=== PATIENT | female | born 1975 | race American Indian/Alaskan Native ===

== ENCOUNTER 2017-09-07 14:48 | Emergency (ER) | payer MEDICAID ==
--- NOTE | 2017-09-07 18:44 | Emergency Department Report ---
ED Allergic Reaction HPI - General Chief complaint: Allergic Reaction Stated complaint: RASH TO HEAD Time Seen by Provider: 09/07/17 16:54 Source: patient Mode of arrival: Ambulatory Limitations: No Limitations - History of Present Illness Initial Comments: States that she used a new gel on her hair, and began to notice the next day that she had drainage, itching, burning sensation to the scalp and her hands. Eyes are red itchy, right side of her face has a rash now. She then fell down a flight of 4 steps, stating she couldn't see well because her eyelids were swollen. Says her right elbow hurts from the fall, and cannot fully extend it. No prior history. She denies allergies. She tried OTC benadryl, and mild soap. Denies other symptoms, no LOC. MD Complaint: allergic reaction -: Sudden, days(s) (1) Exposure: other (hair chemical) Symptoms: rash Severity: moderate Treatment Prior to Arrival: benadryl Previous Allergy History: none - Related Data Home Medications Medication Instructions Recorded Confirmed Last Taken Losartan/Hydrochlorothiazide 1 each PO DAILY 09/07/17 09/07/17 Unknown [Hyzaar 100-12.5 Tablet] Previous Rx's Medication Instructions Recorded Last Taken Type Cephalexin [Keflex] 500 mg PO Q6HR #40 cap 09/07/17 Unknown Rx Hydroxyzine HCl [hydrOXYzine] 50 mg PO TID PRN #30 tablet 09/07/17 Unknown Rx Ibuprofen 600 mg PO TID PRN #30 tablet 09/07/17 Unknown Rx methylPREDNISolone [Medrol Dose 4 mg PO DAILY #1 pack 09/07/17 Unknown Rx Richardson] Allergies Allergy/AdvReac Type Severity Reaction Status Date / Time No Known Allergies Allergy Unverified 09/07/17 15:11 ED Review of Systems ROS: Stated complaint: RASH TO HEAD Other details as noted in HPI Comment: All other systems reviewed and negative Constitutional: see HPI Eyes: other (eyelid swelling) ENT: as per HPI Respiratory: see HPI Cardiovascular: as per HPI Endocrine: see HPI Gastrointestinal: as per HPI Genitourinary: as per HPI Musculoskeletal: as per HPI Skin: as per HPI Neurological: as per HPI Psychiatric: as per HPI Hematological/Lymphatic: as per HPI ED Past Medical Hx - Past Medical History Previous Medical History?: Yes Hx Hypertension: Yes Additional medical history: glaucoma - Surgical History Past Surgical History?: No - Social History Smoking Status: Never Smoker Substance Use Type: None - Medications Home Medications: Home Medications Medication Instructions Recorded Confirmed Last Taken Type Cephalexin [Keflex] 500 mg PO Q6HR #40 cap 09/07/17 Unknown Rx Hydroxyzine HCl [hydrOXYzine] 50 mg PO TID PRN #30 tablet 09/07/17 Unknown Rx Ibuprofen 600 mg PO TID PRN #30 tablet 09/07/17 Unknown Rx Losartan/Hydrochlorothiazide 1 each PO DAILY 09/07/17 09/07/17 Unknown History [Hyzaar 100-12.5 Tablet] methylPREDNISolone [Medrol Dose 4 mg PO DAILY #1 pack 09/07/17 Unknown Rx Richardson] ED Physical Exam - General Limitations: No Limitations General appearance: alert, in no apparent distress - Head Head exam: Present: other (erythema on the right religion region with excoriations and drainage from numerous skin lesions, appears to have purulent drainage in the posterior auricular area ) - Eye Eye exam: Present: other (erythema and swelling of both upper and lower eyelids) - ENT ENT exam: Present: normal exam, normal orophraynx - Neck Neck exam: Present: normal inspection - Respiratory Respiratory exam: Present: normal lung sounds bilaterally. Absent: respiratory distress, wheezes, rales, rhonchi - Cardiovascular Cardiovascular Exam: Present: regular rate, normal rhythm, normal heart sounds - GI/Abdominal GI/Abdominal exam: Present: soft, normal bowel sounds. Absent: distended, tenderness, guarding, rebound, rigid - Rectal Rectal exam: Present: deferred - Extremities Exam Extremities exam: Present: tenderness (right elbow, no abrasion ) - Back Exam Back exam: Present: normal inspection, full ROM - Neurological Exam Neurological exam: Present: alert, oriented X3, CN II-XII intact - Psychiatric Psychiatric exam: Present: normal affect, normal mood - Skin Skin exam: Present: other (as described previously) ED Course Vital Signs 09/07/17 09/07/17 09/07/17 15:11 17:28 17:35 Temperature 99.1 F 98.7 F Pulse Rate 99 H 81 Respiratory 18 16 16 Rate Blood Pressure 223/116 Blood Pressure 172/96 [Left] O2 Sat by Pulse 96 97 Oximetry - Reevaluation(s) Reevaluation #1: 09/07/17 18:50 appears to have had an acute contact dermatitis to the hair chemical, will Rx for steroids, analgesics, atarax, and antibiotics for suspectd secondary infection, and will get xray of the right elbow. 09/07/17 20:58 I don't appreciate any obvious Fx to the elbow. Advised that the official report will come in a day or so. She will need a steroid taper and antibiotics. I'll rx for a medrol dose richardson and keflex. She is to follow up with her PMD. And avoid using any kind of shampoos or detergents other than baby shampoo. She expresses understanding. Motrin or tylenol for her elbow pain. Critical care attestation.: If time is entered above; I have spent that time in minutes in the direct care of this critically ill patient, excluding procedure time. ED Disposition Clinical Impression: Staph aureus infection Contact dermatitis Qualifiers: Contact dermatitis type: allergic Contact dermatitis trigger: cosmetics Qualified Code(s): L23.2 - Allergic contact dermatitis due to cosmetics Disposition: DC- TO HOME OR SELFCARE Is pt being admited?: No Does the pt Need Aspirin: No Condition: Stable Instructions: Contact Dermatitis (ED), Impetigo (ED) Additional Instructions: Rest, fluids, follow up with your doctor, watch for worsening, new symptoms, take medications as prescribed, return as needed. Prescriptions: Cephalexin [Keflex] 500 mg PO Q6HR #40 cap Hydroxyzine HCl [hydrOXYzine] 50 mg PO TID PRN #30 tablet PRN Reason: Itching Ibuprofen 600 mg PO TID PRN #30 tablet PRN Reason: Pain methylPREDNISolone [Medrol Dose Richardson] 4 mg PO DAILY #1 pack Referrals: PRIMARY CARE, [Primary Care Provider] - 3-5 Days
[2017-09-07 21:54] VITALS: BP 172/94
--- NOTE | 2017-09-09 07:46 | XRay Report ---
FINAL REPORT PROCEDURE: XR ELBOW 3+V RT TECHNIQUE: RIGHT elbow radiographs, including AP, lateral, and oblique views. CPT 04984 HISTORY: fall, hit elbow COMPARISON: No prior studies are available for comparison. FINDINGS: Fracture (s) and/or Dislocation(s): None . Alignment: Normal . Joint space(s): Normal . Soft tissues: Normal . Bone mineralization: Normal . Foreign bodies: None . IMPRESSION: Normal Examination
== END 2017-09-07 21:51 | disposition home or self-care (01) ==
LOC: ED 14:48
DX: B95.7 Other staphylococcus as the cause of diseases classified elsewhere (principal); L23.2 Allergic contact dermatitis due to cosmetics; I10 Essential (primary) hypertension
CPT/HCPCS: 73080; 96372; 99283; J2930

== ENCOUNTER 2017-12-06 00:57 | Emergency (ER) | payer MEDICAID ==
[2017-12-06 03:03] LABS: HCG Qualitative,Urine Negative (Negative)
--- NOTE | 2017-12-06 09:24 | Emergency Department Report ---
ED Headache HPI - General Chief Complaint: Headache Stated Complaint: H/A; BLURRED VISION Time Seen by Provider: 12/06/17 09:10 Source: patient, family - History of Present Illness Initial Comments: This is a 42-year-old female patient here with headache 2 weeks. She complained of blurred vision. She reports chest tightness in triage area but denies any chest pain or tightness at present. Denies any pain with inspiration. Denies any history of chest pain. She reports nasal congestion runny nose and postnasal drip. Pain to head 7-10 and aching. It is located frontally. She has is that she did go home. This is positive she is on losartan HCTZ which she has not taken today her blood pressure is 188/83 patient also has a history of overactive thyroid, glaucoma. Denies any nausea or vomiting. She reports occasional coughing. No medication taken for pain. Pain is intermittent. Denies any trauma. Denies that she just moved to [place] from [place] and she is given adjusted to the weather. She has been here and 09/07/2017 and was diagnosed with allergic reaction. Timing/Duration: episodic, waxing and waning, other (2 weeks) Quality: severe (7/10), achy, pressure Head Injury Location: frontal Recent Head Trauma: occasional headaches Modifying Factors: improves with: rest Associated Symptoms: nasal congestion, nasal drainage, vision changes ( blurred vision on and off). denies: confusion, fatigue, facial pain, fever/chills, flushing, loss of consciousness, nausea/vomiting, numbness in legs/feet, rash, seizures, sinus infection, stiff neck, weakness Allergies/Adverse Reactions: Allergies No Known Allergies Allergy (Verified 12/06/17 02:18) Home Medications: Ambulatory Orders Cephalexin [Keflex] 500 mg PO Q6HR #40 cap 09/07/17 Hydroxyzine HCl [hydrOXYzine] 50 mg PO TID PRN #30 tablet 09/07/17 Losartan/Hydrochlorothiazide [Hyzaar 100-12.5 Tablet] 1 each PO DAILY 09/07/17 methylPREDNISolone [Medrol Dose Richardson] 4 mg PO DAILY #1 pack 09/07/17 Azithromycin [Zithromax Z-RICHARDSON] 250 mg PO DAILY 6 Days #1 pack 12/06/17 Cetirizine HCl [ZyrTEC] 10 mg PO QAM 14 Days #14 capsule 12/06/17 Fluticasone [Flonase] 1 spray NS QDAY 14 Days #1 bottle 12/06/17 Ibuprofen 600 mg PO TID PRN #12 tablet 12/06/17 predniSONE [Deltasone] 50 mg PO QDAY 3 Days #3 tab 12/06/17 ED Review of Systems ROS: Stated complaint: H/A; BLURRED VISION Other details as noted in HPI Comment: All other systems reviewed and negative Constitutional: denies: chills, fever Eyes: vision change (blurred vision on and off). denies: eye pain, eye discharge ENT: congestion. denies: ear pain, throat pain, dental pain, hearing loss Respiratory: denies: cough, shortness of breath, wheezing Cardiovascular: denies: chest pain, palpitations, dyspnea on exertion, edema, syncope, paroxysmal nocturnal dyspnea Gastrointestinal: denies: abdominal pain, nausea, vomiting, diarrhea Genitourinary: abnormal menses. denies: urgency, dysuria, frequency, hematuria , discharge Musculoskeletal: denies: back pain, joint swelling, arthralgia Skin: denies: rash, lesions Neurological: headache, other (dizziness). denies: weakness, numbness, paresthesias, confusion, abnormal gait ED Past Medical Hx - Past Medical History Previous Medical History?: Yes Hx Hypertension: Yes (on medication) Additional medical history: glaucoma , over active Thyroid whe - Surgical History Past Surgical History?: Yes Additional Surgical History: csection - Family History Family history: hypertension - Social History Smoking Status: Never Smoker Substance Use Type: None Other Social History: Resident to [place] and lives with family - Medications Home Medications: Home Medications Medication Instructions Recorded Confirmed Last Taken Type Cephalexin [Keflex] 500 mg PO Q6HR #40 cap 09/07/17 Unknown Rx Hydroxyzine HCl [hydrOXYzine] 50 mg PO TID PRN #30 tablet 09/07/17 Unknown Rx Losartan/Hydrochlorothiazide 1 each PO DAILY 09/07/17 09/07/17 Unknown History [Hyzaar 100-12.5 Tablet] methylPREDNISolone [Medrol Dose 4 mg PO DAILY #1 pack 09/07/17 Unknown Rx Richardson] Azithromycin [Zithromax Z-RICHARDSON] 250 mg PO DAILY 6 Days #1 pack 12/06/17 Unknown Rx Cetirizine HCl [ZyrTEC] 10 mg PO QAM 14 Days #14 capsule 12/06/17 Unknown Rx Fluticasone [Flonase] 1 spray NS QDAY 14 Days #1 bottle 12/06/17 Unknown Rx Ibuprofen 600 mg PO TID PRN #12 tablet 12/06/17 Unknown Rx predniSONE [Deltasone] 50 mg PO QDAY 3 Days #3 tab 12/06/17 Unknown Rx ED Physical Exam - General Limitations: No Limitations General appearance: alert, in no apparent distress - Head Head exam: Present: atraumatic, normocephalic, normal inspection, other (normal exam) - Eye Eye exam: Present: normal appearance, PERRL, EOMI. Absent: scleral icterus, conjunctival injection, nystagmus, periorbital swelling, periorbital tenderness Pupils: Present: normal accommodation - ENT ENT exam: Present: normal exam, normal orophraynx, mucous membranes moist, normal external ear exam, other (nasal mucosa congested and erythema with clear drainage.). Absent: TM's normal bilaterally - Neck Neck exam: Present: normal inspection, full ROM, other (no C-spine tenderness). Absent: tenderness, meningismus, lymphadenopathy - Respiratory Respiratory exam: Present: normal lung sounds bilaterally. Absent: respiratory distress, wheezes, rales, rhonchi, stridor, chest wall tenderness, accessory muscle use, decreased breath sounds, prolonged expiratory - Cardiovascular Cardiovascular Exam: Present: regular rate, normal rhythm, normal heart sounds. Absent: systolic murmur, diastolic murmur - GI/Abdominal GI/Abdominal exam: Present: soft, normal bowel sounds. Absent: distended, tenderness, guarding, rebound, rigid - Extremities Exam Extremities exam: Present: normal inspection, full ROM, normal capillary refill , other (no no clubbing, cyanosis or edema. +2 pulses all extremities and no neurovascular compromise). Absent: tenderness, pedal edema, joint swelling, calf tenderness - Back Exam Back exam: Present: normal inspection, full ROM, other (ambulates without any difficulties). Absent: tenderness, CVA tenderness (R), CVA tenderness (L), muscle spasm, paraspinal tenderness, vertebral tenderness, rash noted - Neurological Exam Neurological exam: Present: alert, oriented X3, normal gait, reflexes normal. Absent: motor sensory deficit - Expanded Neurological Exam Expanded Neurological exam: Absent: innattentive, memory loss-remote event, memory loss- recent event, ataxia, receptive aphasia, expressive aphasia, total aphasia, tremor, protecting the airway Patient oriented to: Present: person, place, time Cranial nerves: EOM's Intact: Normal, Gag Reflex: Normal, Tongue Deviation: Normal, Nystagmus: Normal, Facial Sensation: Normal Cerebellar function: Romberg: Normal Upper motor neuron: Sensory Extinction: Normal Sensory exam: Upper Extremity Light Touch: Normal, Upper Extremity Temperature: Normal, UE 2 Point Discrimination: Normal, Lower Extremity Light Touch: Normal, Lower Extremity Temperature: Normal, LE 2 Point Discrimination: Normal Motor strength exam: RUE: 5, LUE: 5, RLE: 5, LLE: 5 Best Eye Response (Jason): (4) open spontaneously Best Motor Response ([place]): (6) obeys commands Best Verbal Response ([place]): (5) oriented [place] Total: 15 - Psychiatric Psychiatric exam: Present: normal affect, normal mood - Skin Skin exam: Present: warm, dry, intact, normal color. Absent: rash ED Course Vital Signs 12/06/17 12/06/17 02:13 10:48 Temperature 98.8 F 98.4 F Pulse Rate 77 80 Respiratory 15 Rate Blood Pressure 188/83 Blood Pressure 183/108 [Left] O2 Sat by Pulse 98 96 Oximetry - Reevaluation(s) Reevaluation #1: 12/06/17 10:42 She given Tylenol 975 mg by mouth for headache and she was relief of her headache. CT scan revealed no intracranial abnormalities but patient with probably sphenoid sinusitis and patient with positive nasal congestion, erythematous nasal mucosa and drainage and postnasal drainage. No change in neurological status from baseline ED Medical Decision Making - Lab Data Lab Results 12/06/17 Range/Units Unknown Urine HCG, Qual Negative (Negative) - Radiology Data Radiology results: report reviewed Findings [facility] [address] [place] [address] Cat Scan Report Signed Patient: BRIAN KIMBALL MR#: [id number] : 1975 Acct:[id number] Age/Sex: 42 / F ADM Date: 12/06/17 Loc: ED Attending Dr: Ordering Physician: KEITH IBRAHIM Date of Service: 12/06/17 Procedure(s): CT head/brain wo con Accession Number(s): [id number] cc: KEITH IBRAHIM FINAL REPORT EXAM: CT HEAD/BRAIN WO CON HISTORY: headache, dizziness, blurred vision TECHNIQUE: CT of the head was performed. No intravenous contrast was administered. PRIORS: None. FINDINGS: There is no evidence of intracranial hemorrhage. There is no edema, mass effect or midline shift. There are no abnormal extra-axial fluid collections. The ventricles are appropriate for brain volume. There is no skull fracture seen. There are some dependent secretions and mucosal thickening involving the sphenoid sinus. IMPRESSION: Mucosal thickening and dependent secretions in sphenoid sinus which could represent sinusitis. Otherwise no acute intracranial abnormality seen. Transcribed By: LAZARA Dictated By: MUSA SHANKAR MD Electronically Authenticated By: MUSA SHANKAR MD Signed Date/Time: 12/06/17 0952 - Medical Decision Making ED course: A seen here with frontal headache this we will send and wane in over the last 2 weeks. She has a history of high blood pressure and she is on losartan/HCTZ but she brought to the hospital with her but did not take this morning. Patient took her losartan pressure was 188/[address] scan of the brain without contrast reveals no acute intracranial findings but patient with mucosal thickening with sphenoid sinusitis. Physical findings: Nasal congestion, runny nose erythema. I suspect the patient her CT scan results and also urinalysis with negative . I discussed the diagnosis of sinusitis and sinus headache. I also discussed with her that she needs to follow-up with [facility] as she is a new resident to [place] and does not have a primary care physician. Patient given information in [facility] and I told her to call today to schedule an appointment and to take her blood pressure and keep him up and take to her primary care visit with her. Patient given Tylenol 975 mg for headache which relieved her headache. She is neurologically intact. Discharged home in stable condition with prescription for prednisone, Z-Richardson, motrin ,Flonase and Zyrtec FINAL REPORT EXAM: CT HEAD/BRAIN WO CON HISTORY: headache, dizziness, blurred vision TECHNIQUE: CT of the head was performed. No intravenous contrast was administered. PRIORS: None. FINDINGS: There is no evidence of intracranial hemorrhage. There is no edema, mass effect or midline shift. There are no abnormal extra-axial fluid collections. The ventricles are appropriate for brain volume. There is no skull fracture seen. There are some dependent secretions and mucosal thickening involving the sphenoid sinus. IMPRESSION: Mucosal thickening and dependent secretions in sphenoid sinus which could represent sinusitis. Otherwise no acute intracranial abnormality seen. Transcribed By: LAZARA Dictated By: MUSA SHANKAR MD Electronically Authenticated By: MUSA SHANKAR MD Signed Date/Time: 12/06/17 0952 - Differential Diagnosis CVA, generalized headache, sinus headache, sinusitis, allerg rhininitis Critical care attestation.: If time is entered above; I have spent that time in minutes in the direct care of this critically ill patient, excluding procedure time. ED Disposition Clinical Impression: Elevated blood pressure reading with diagnosis of hypertension, Abnormal bleeding in menstrual cycle Sinusitis, acute Qualifiers: Sinusitis location: unspecified location Recurrence: not specified as recurrent Qualified Code(s): J01.90 - Acute sinusitis, unspecified Headache Qualifiers: Headache type: unspecified Headache chronicity pattern: acute headache Intractability: not intractable Qualified Code(s): R51 - Headache Disposition: DC-01 TO HOME OR SELFCARE Is pt being admited?: No Does the pt Need Aspirin: No Condition: Stable Instructions: Sinusitis (ED), Heart Healthy Diet (ED), Acute Headache (ED), Low Sodium Diet (ED), Hypertension (ED) Additional Instructions: Please follow up at [facility] for primary care visit an RANGE MANAGER visit. RANGE MANAGER will have to re-evaluate you for abnormal menstrual cycle. Primary care will manage her chronic blood pressure medical problems Take all medication as prescribed Prescriptions: Azithromycin [Zithromax Z-RICHARDSON] 250 mg PO DAILY 6 Days #1 pack Cetirizine HCl [ZyrTEC] 10 mg PO QAM 14 Days #14 capsule Fluticasone [Flonase] 1 spray NS QDAY 14 Days #1 bottle Ibuprofen 600 mg PO TID PRN #12 tablet PRN Reason: Pain predniSONE [Deltasone] 50 mg PO QDAY 3 Days #3 tab Referrals: TARYN RICO MD [Staff Physician] - 12/09/17 [facility] [Outside] - 12/09/17 (RANGE MANAGER and primary care physician ) Forms: Work/School Release Form(ED)
[2017-12-06] MEDS ORDERED: TYLENOL PO ONE (09:26)
--- NOTE | 2017-12-06 09:58 | Cat Scan Report ---
FINAL REPORT EXAM: CT HEAD/BRAIN WO CON HISTORY: headache, dizziness, blurred vision TECHNIQUE: CT of the head was performed. No intravenous contrast was administered. PRIORS: None. FINDINGS: There is no evidence of intracranial hemorrhage. There is no edema, mass effect or midline shift. There are no abnormal extra-axial fluid collections. The ventricles are appropriate for brain volume. There is no skull fracture seen. There are some dependent secretions and mucosal thickening involving the sphenoid sinus. IMPRESSION: Mucosal thickening and dependent secretions in sphenoid sinus which could represent sinusitis. Otherwise no acute intracranial abnormality seen.
[2017-12-06 11:08] VITALS: BP 160/92
== END 2017-12-06 11:14 | disposition home or self-care (01) ==
LOC: ED 00:57
DX: J01.90 Acute sinusitis, unspecified (principal); R51 Headache; I10 Essential (primary) hypertension; N91.5 Oligomenorrhea, unspecified
CPT/HCPCS: 70450; 81025

== ENCOUNTER 2018-11-02 23:21 | Inpatient (IN) | payer MEDICAID ==
[2018-11-03] MEDS ORDERED: CATAPRES PO ONE (00:05)
[2018-11-03 00:31] LABS: Basophils # (Auto) 0.1 K/mm3 (0.0-0.1); Basophils % (Auto) 1.4 % (0.0-1.8); Eosinophils # (Auto) 0.2 K/mm3 (0.0-0.4); Eosinophils % (Auto) 2.8 % (0.0-4.3); Hematocrit 40.2 % (30.3-42.9); Lymphocytes # (Auto) 2.8 K/mm3 (1.2-5.4); Lymphocytes % (Auto) 40.9 % (13.4-35.0); Mean Corpuscular HGB Conc 33 % (30-34); Mean Corpuscular Volume 86 fl (79-97); Monocytes # (Auto) 0.5 K/mm3 (0.0-0.8); Monocytes % (Auto) 7.1 % (0.0-7.3); Platelet Count 202 K/mm3 (140-440); Red Blood Count 4.69 M/mm3 (3.65-5.03); Red Cell Distribution Width 15.4 % (13.2-15.2)
[2018-11-03 00:43] LABS: INR 0.94 (0.87-1.13)
[2018-11-03 00:44] LABS: Partial Thromboplastin Time 32.1 Sec. (24.2-36.6)
--- NOTE | 2018-11-03 00:53 | Cat Scan Report ---
PROCEDURE: CT HEAD/BRAIN WO CON TECHNIQUE: Computerized tomography of the head was performed without contrast material. HISTORY: neuro deficits <6hrs or sx present upon awakening COMPARISONS: 12/06/17. FINDINGS: Skull and scalp: Normal . Paranasal sinuses: Normal . Ventricles and subarachnoid spaces: Normal . Cerebrum: No evidence of hemorrhage, acute infarction or mass . Cerebellum and brainstem: No evidence of hemorrhage, acute infarction or mass . Vasculature: Normal . Other: None . IMPRESSION: No evidence of hemorrhage, acute infarction or mass . This document is electronically signed by Vivian Cooper MD., November 03 2018 12:51:12 AM ET
[2018-11-03 00:58] LABS: BUN/Creatinine Ratio 15; Blood Urea Nitrogen 16 mg/dL (7-17); Calcium 9.5 mg/dL (8.4-10.2); Hemolysis Index 25
--- NOTE | 2018-11-03 03:08 | XRay Report ---
PROCEDURE: XR CHEST ROUTINE 2V TECHNIQUE: PA and lateral chest HISTORY: CP COMPARISONS: No priors FINDINGS: Cardiac silhouette mildly enlarged. There is no evidence of airspace consolidation or pleural effusions. The pulmonary vasculature is within normal limits. IMPRESSION: Cardiomegaly with no evidence of failure or acute infiltrates.. This document is electronically signed by Donovan Daigle MD., November 03 2018 03:06:14 AM ET
[2018-11-03] MEDS ORDERED: NITROSTAT SL PRN (04:19)
[2018-11-03] MEDS ORDERED: ASPIRIN PO ONE (04:20)
--- NOTE | 2018-11-03 04:36 | Emergency Department Report ---
ED Chest Pain HPI - General Chief Complaint: Chest Pain Stated Complaint: CHEST PAIN,LEFT SIDE FACE/ARM PAIN Time Seen by Provider: 11/03/18 03:07 Source: patient Mode of arrival: Ambulatory Limitations: No Limitations - History of Present Illness Initial Comments: Patient is a 43-year-old black female who is presenting with some chest pain. Patient states that yesterday she has chest discomfort lasted approximately 30 minutes to an hour and subsided. He returned earlier today tonight. Patient states just a pressure sensation in his she does have some radiation of this to her left side of her face on the left shoulder. Patient states the pain is persistent. Patient states that his shortness of breath associated with the chest discomfort. Over the last week patient has some shortness of breath with exertion with no pain. Patient denies any nausea vomiting diaphoresis fevers or chills. Patient states she has history of high blood pressure diabetes and has been compliant with her medications. Severity scale (0 -10): 7 - Related Data Home Medications Medication Instructions Recorded Confirmed Last Taken Losartan/Hydrochlorothiazide 50 mg PO DAILY 09/07/17 11/03/18 11/03/18 [Hyzaar 100-12.5 Tablet] Meloxicam 15 mg PO DAILY 11/03/18 11/03/18 11/03/18 metFORMIN [Glucophage] 500 mg PO BID 11/03/18 11/03/18 11/03/18 Allergies Allergy/AdvReac Type Severity Reaction Status Date / Time No Known Allergies Allergy Verified 12/06/17 02:18 Heart Score - HEART Score History: Highly suspicious EKG: Normal Age: < 45 Risk factors: > 3 risk factors or hx of atherosclerotic disease Troponin: < normal limit HEART Score: 4 ED Review of Systems ROS: Stated complaint: CHEST PAIN,LEFT SIDE FACE/ARM PAIN Other details as noted in HPI Comment: All other systems reviewed and negative ED Past Medical Hx - Past Medical History Previous Medical History?: Yes Hx Hypertension: Yes (on medication) Additional medical history: glaucoma , over active Thyroid whe - Surgical History Past Surgical History?: Yes Additional Surgical History: csection - Social History Smoking Status: Never Smoker Substance Use Type: None - Medications Home Medications: Home Medications Medication Instructions Recorded Confirmed Last Taken Type Losartan/Hydrochlorothiazide 50 mg PO DAILY 09/07/17 11/03/18 11/03/18 History [Hyzaar 100-12.5 Tablet] Meloxicam 15 mg PO DAILY 11/03/18 11/03/18 11/03/18 History metFORMIN [Glucophage] 500 mg PO BID 11/03/18 11/03/18 11/03/18 History ED Physical Exam - General Limitations: No Limitations General appearance: alert, in no apparent distress - Head Head exam: Present: atraumatic, normocephalic - Eye Eye exam: Present: normal appearance - ENT ENT exam: Present: mucous membranes moist - Neck Neck exam: Present: normal inspection - Respiratory Respiratory exam: Present: normal lung sounds bilaterally. Absent: respiratory distress, wheezes, rales, rhonchi - Cardiovascular Cardiovascular Exam: Present: regular rate, normal rhythm. Absent: systolic murmur, diastolic murmur, rubs, gallop - GI/Abdominal GI/Abdominal exam: Present: soft, normal bowel sounds. Absent: distended, tenderness, guarding, rebound, rigid - Extremities Exam Extremities exam: Present: normal inspection - Back Exam Back exam: Present: normal inspection - Neurological Exam Neurological exam: Present: alert, oriented X3 - Psychiatric Psychiatric exam: Present: normal affect, normal mood - Skin Skin exam: Present: warm, dry, intact, normal color. Absent: rash ED Course Vital Signs 11/02/18 11/03/18 11/03/18 23:59 00:10 01:27 Temperature 98.4 F 98.4 F Pulse Rate 73 73 76 Respiratory 20 20 Rate Blood Pressure 225/96 225/96 227/98 Blood Pressure [Left] O2 Sat by Pulse 100 99 Oximetry 11/03/18 11/03/18 11/03/18 01:48 03:22 03:25 Temperature Pulse Rate Respiratory Rate Blood Pressure 141/92 Blood Pressure 208/120 141/92 [Left] O2 Sat by Pulse Oximetry 11/03/18 11/03/18 03:30 04:00 Temperature Pulse Rate Respiratory Rate Blood Pressure 154/98 149/103 Blood Pressure [Left] O2 Sat by Pulse Oximetry CT score - Ct Score Age > 65: (0) No Aspirin use within the Past 7 Days: (0) No 3 or more CAD Risk Factors: (1) Yes 2 or more Angina events in past 24 hrs: (1) Yes Known CAD with more than 50% Stenosis: (0) No Elevated Cardiac Markers: (0) No ST Deviation Greater than 0.5mm: (0) No CT Score: 2 ED Medical Decision Making - Lab Data Result diagrams: 11/02/18 23:37 11/02/18 23:37 Lab Results 11/02/18 11/02/18 11/02/18 Range/Units 23:37 23:37 23:37 WBC 6.8 (4.5-11.0) K/mm3 RBC 4.69 (3.65-5.03) M/mm3 Hgb 13.0 (10.1-14.3) gm/dl Hct 40.2 (30.3-42.9) % MCV 86 (79-97) fl MCH 28 (28-32) pg MCHC 33 (30-34) % RDW 15.4 H (13.2-15.2) % Plt Count 202 (140-440) K/mm3 Lymph % (Auto) 40.9 H (13.4-35.0) % Dickey % (Auto) 7.1 (0.0-7.3) % Eos % (Auto) 2.8 (0.0-4.3) % Baso % (Auto) 1.4 (0.0-1.8) % Lymph # 2.8 (1.2-5.4) K/mm3 Dickey # 0.5 (0.0-0.8) K/mm3 Eos # 0.2 (0.0-0.4) K/mm3 Baso # 0.1 (0.0-0.1) K/mm3 Seg Neutrophils % 47.8 (40.0-70.0) % Seg Neutrophils # 3.3 (1.8-7.7) K/mm3 PT 13.1 (12.2-14.9) Sec. INR 0.94 (0.87-1.13) APTT 32.1 (24.2-36.6) Sec. Thrombin Time (15.1-19.6) Sec. Sodium 140 (137-145) mmol/L Potassium 3.9 (3.6-5.0) mmol/L Chloride 100.1 (98-107) mmol/L Carbon Dioxide 29 (22-30) mmol/L Anion Gap 15 mmol/L BUN 16 (7-17) mg/dL Creatinine 1.1 (0.7-1.2) mg/dL Estimated GFR > 60 ml/min BUN/Creatinine Ratio 15 % Glucose 94 (65-100) mg/dL Calcium 9.5 (8.4-10.2) mg/dL Troponin T < 0.010 (0.00-0.029) ng/mL HCG, Qual (Negative) 11/02/18 11/03/18 11/03/18 Range/Units 23:37 03:18 03:18 WBC (4.5-11.0) K/mm3 RBC (3.65-5.03) M/mm3 Hgb (10.1-14.3) gm/dl Hct (30.3-42.9) % MCV (79-97) fl MCH (28-32) pg MCHC (30-34) % RDW (13.2-15.2) % Plt Count (140-440) K/mm3 Lymph % (Auto) (13.4-35.0) % Dickey % (Auto) (0.0-7.3) % Eos % (Auto) (0.0-4.3) % Baso % (Auto) (0.0-1.8) % Lymph # (1.2-5.4) K/mm3 Dickey # (0.0-0.8) K/mm3 Eos # (0.0-0.4) K/mm3 Baso # (0.0-0.1) K/mm3 Seg Neutrophils % (40.0-70.0) % Seg Neutrophils # (1.8-7.7) K/mm3 PT (12.2-14.9) Sec. INR (0.87-1.13) APTT (24.2-36.6) Sec. Thrombin Time 17.9 (15.1-19.6) Sec. Sodium (137-145) mmol/L Potassium (3.6-5.0) mmol/L Chloride (98-107) mmol/L Carbon Dioxide (22-30) mmol/L Anion Gap mmol/L BUN (7-17) mg/dL Creatinine (0.7-1.2) mg/dL Estimated GFR ml/min BUN/Creatinine Ratio % Glucose (65-100) mg/dL Calcium (8.4-10.2) mg/dL Troponin T < 0.010 (0.00-0.029) ng/mL HCG, Qual Negative (Negative) - EKG Data -: EKG Interpreted by Ar - EKG Data 11/03/18 04:38 EKG shows sinus rhythm rate of 74. Jewett normal intervals are normal. His evidence of LVH. T wave inversions in the inferior and lateral leads. No EKGs are in the system for comparison. Time of interpretation is 0125 - Radiology Data Radiology results: report reviewed CXR WNL - Medical Decision Making His blood pressure improved with Catapres. Patient still had some persistent chest discomfort and patient was started on nitroglycerin tabs. Patient to be admitted to Dr. Ohara Critical Care Time: Yes (30) Critical care attestation.: If time is entered above; I have spent that time in minutes in the direct care of this critically ill patient, excluding procedure time. ED Disposition Clinical Impression: Unstable angina, Malignant hypertensive urgency Disposition: -09 OP ADMIT IP TO THIS HOSP Is pt being admited?: Yes Condition: Stable Instructions: Angina (ED) Referrals: JOSE A OHARA MD [Staff Physician] - 3-5 Days Time of Disposition: 04:39
[2018-11-03] MEDS ORDERED: NITRO-BID 2% TP PRN (05:01)
[2018-11-03] MEDS ORDERED: MORPHINE IV PRN (05:01)
[2018-11-03 06:11] LABS: Chol/HDL Ratio 2.84 %
[2018-11-03] MEDS ORDERED: ZESTRIL PO ONE (07:00)
--- NOTE | 2018-11-03 07:38 | History and Physical Report ---
History of Present Illness Date of examination: 11/03/18 Date of admission: 11/03/18 04:40 Chief complaint: Chest pain 1 day duration History of present illness: Patient is a 43-year-old lady with a history of hypertension and overactive thyroid during presented to the emergency Department on account of chest pain of one-day duration. Chest pain was dull in nature, substernal, lasted about 30 minutes. Intermittent, nonexertional, radiating to the left side of the face on the left shoulder. Associated with shortness of breath. Denies any diaphoresis, headache or blurred vision. No fever. No abdomen pain most of vomiting. Came to the emergency department where initial set of cardiac enzymes were normal. EKG was unremarkable. TSH was normal. Blood pressure was found to be 208/120. Admission was therefore requested for fibrillation woke up. Past History Past Medical History: hypertension, other (overactive thyroid when ) Past Surgical History: Social history: denies: smoking, alcohol abuse, prescription drug abuse Family history: no significant family history Medications and Allergies Allergies Allergy/AdvReac Type Severity Reaction Status Date / Time No Known Allergies Allergy Verified 12/06/17 02:18 Home Medications Medication Instructions Recorded Confirmed Last Taken Type Losartan/Hydrochlorothiazide 50 mg PO DAILY 09/07/17 11/03/18 11/03/18 History [Hyzaar 100-12.5 Tablet] Meloxicam 15 mg PO DAILY 11/03/18 11/03/18 11/03/18 History metFORMIN [Glucophage] 500 mg PO BID 11/03/18 11/03/18 11/03/18 History Active Meds: Active Medications Morphine Sulfate (Morphine) 2 mg IV Q6H PRN PRN Reason: Pain, Moderate (4-6) Nitroglycerin (Nitrostat) 0.4 mg SL .Q5MIN PRN PRN Reason: Chest Pain Last Admin: 11/03/18 04:58 Dose: 0.4 mg Documented by: Nitroglycerin (Nitro-Bid 2%) 1 inch TP Q6H PRN; Protocol PRN Reason: Chest Pain Review of systems Constitutional: Well Nourished and Well developed. Head: NC/ AT Eyes: Denies any visual impairments. No discharge from the eyes Nose: Denies any rhinorrhea or epistaxis Throats: Denies any post nasal drainage. Ears: Denies any hearing deficits Cardiovascular system: Has chest pain, shortness of breath, orthopnea, paroxysmal nocturnal dyspnea, or palpitation. Respiratory system: Denies any cough, difficulty breathing, wheezing, pleuritic chest pain, Gastrointestinal system: Denies any abdominal pain, nausea vomiting, hematemesis or melena. Neurological system: Denies any headache, slurred speech, facial droop, lateralizing weakness Genitalia system: Denies any dysuria, urinary frequency or urgency, urethral discharge Skin: No rashes, hyperpigmented spots. Hematological: Denies any cervical tenderness hemorrhages or petechia. Immunological: Denies any multiple septic spots, Lymphatic: Denies any generalized lymphadenopathy. Endocrine: Denies any polyuria, polydipsia, polyphagia. No heat or cold intolerance. Musculoskeletal system: No joint pain or swelling. Psych: No visual, tactile, auditory or hallucination Exam - Physical Exam Narrative exam: Constitutional: Well-nourished well-developed. In no distress Head: Normocephalic atraumatic Eyes: Pupils are equal round and reactive to light Nose: No enlarged turbinates, no septal deviation. Mouth: Moist mucous membranes. Neck: Supple no thyromegaly. No bruit. No JVD Heart: Regular rate and rhythm, S1-S2 normal. No rubs murmurs or gallop Lungs: Clear to auscultation bilaterally. no rales or rhonchi Abdomen: Soft, nontender. Bowel sound are present. Extremities: No edema, no cyanosis, no clubbing. Neuro: Alert oriented Oriented x3. No focal sensory or motor deficit. Skin: No rashes or hyperpigmented spots Musculoskeletal system: No joint pain or swelling Hematological: No petechia or subcutanous hemorrhages. Immunological: No multiple septic spots on the skin Lymphatic: No generalized lymphadenopathy Psychiatry: Euthymic. Calm. - Constitutional Vitals: Temp Pulse Resp BP Pulse Ox 98.4 F 76 20 149/103 99 11/03/18 01:27 11/03/18 01:27 11/03/18 01:27 11/03/18 04:00 11/03/18 01:27 Results - Labs CBC & Chem 7: 11/02/18 23:37 11/02/18 23:37 Labs: Abnormal lab results 11/02/18 11/03/18 Range/Units 23:37 05:40 RDW 15.4 H (13.2-15.2) % Lymph % (Auto) 40.9 H (13.4-35.0) % HDL Cholesterol 63 H (40-59) mg/dL Assessment and Plan 43-year-old lady with a past history of hypertension presented emergency department on account of worsening chest pain radiating to the left arm. Associated with shortness of breath. Cardiac Enzymes were normal. EKG was normal. - Chest pain Cardiac enzymes 3 were normal EKG was normal Comments patient on oxygen, nitroglycerin, aspirin, morphine. Left stress test - Hypertensive emergency 2 g sodium diet Optimize blood pressure control - DVT prophylaxis with Lovenox and GI with Pepcid CODE STATUS: Full code Time spent over 30 minutes
[2018-11-03] MEDS ORDERED: ZESTRIL ONE (08:27)
[2018-11-03] MEDS ORDERED: LEXISCAN IV ONE ×2 (09:19→09:20)
[2018-11-03] MEDS ORDERED: ZESTRIL PO SCH (10:00)
[2018-11-03] MEDS ORDERED: HYDROCHLOROTHIAZIDE PO SCH (10:00)
[2018-11-03] MEDS ORDERED: LOSARTAN PO SCH (10:00)
[2018-11-03] MEDS: NORVASC PO SCH (11:50)
[2018-11-03] MEDS: LOVENOX SUB-Q SCH (11:50)
--- NOTE | 2018-11-04 08:43 | Discharge Summary ---
Providers - Providers Date of Admission: 11/03/18 04:40 Date of discharge: 11/04/18 Attending physician: JOSE A OHARA none Primary care physician: SAURABH PUTNAM Hospitalization Reason for admission: chest pain Condition: Stable Pertinent studies: stress test that was normal Procedures: none Hospital course: Patient is a 43-year-old lady with a history of hypertension and overactive thyroid during presented to the emergency Department on account of chest pain of one-day duration. Chest pain was dull in nature, substernal, lasted about 30 minutes. Intermittent, nonexertional, radiating to the left side of the face on the left shoulder. Associated with shortness of breath. Denies any diaphoresis, headache or blurred vision. No fever. No abdomen pain most of vomiting. Came to the emergency department where initial set of cardiac enzymes were normal. EKG was unremarkable. TSH was normal. Blood pressure was found to be 208/120. Admission was therefore requested for further work up. Pt was commenced on oxygen nitrogycerin and morphin. BP controlled with oral antihypertensive. Stress test was done and result was normal. Pt was discharged to f/u with PCP in 3-5 days. Disposition: DC-01 TO HOME OR SELFCARE Time spent for discharge: >35 min - Discharge Diagnoses (1) Malignant hypertensive urgency Status: Acute (2) Unstable angina Status: Acute Core Measure Documentation - Palliative Care Palliative Care/ Comfort Measures: Not Applicable - Core Measures Any of the following diagnoses?: none Exam - Physical Exam Narrative exam: Constitutional: Well-nourished well-developed. In no distress Head: Normocephalic atraumatic Eyes: Pupils are equal round and reactive to light Nose: No enlarged turbinates, no septal deviation. Mouth: Moist mucous membranes. Neck: Supple no thyromegaly. No bruit. No JVD Heart: Regular rate and rhythm, S1-S2 normal. No rubs murmurs or gallop Lungs: Clear to auscultation bilaterally. no rales or rhonchi Abdomen: Soft, nontender. Bowel sound are present. Extremities: No edema, no cyanosis, no clubbing. Neuro: Alert oriented Oriented x3. No focal sensory or motor deficit. Skin: No rashes or hyperpigmented spots Musculoskeletal system: No joint pain or swelling Hematological: No petechia or subcutanous hemorrhages. Immunological: No multiple septic spots on the skin Lymphatic: No generalized lymphadenopathy Psychiatry: Euthymic. Calm. - Constitutional Vitals: Temp Pulse Resp BP Pulse Ox 98.0 F 68 18 155/86 99 11/04/18 04:17 11/04/18 04:17 11/04/18 04:17 11/04/18 04:17 11/04/18 04:17 Plan Activity: advance as tolerated Weight Bearing Status: Weight Bear as Tolerated Diet: low salt Follow up with: JOSE A OHARA MD [Staff Physician] - 3-5 Days Prescriptions: Losartan [Cozaar] 100 mg PO DAILY #30 tablet metFORMIN [Glucophage] 500 mg PO BID #60 tablet amLODIPine [Norvasc] 10 mg PO QDAY #30 tablet
[2018-11-04 09:43] VITALS: BP 174/112
[2018-11-04] MEDS ORDERED: HCTZ PO SCH (10:00)
[2018-11-04] MEDS ORDERED: COZAAR PO SCH ×2 (10:00)
[2018-11-04] MEDS: LOVENOX SUB-Q SCH (10:13)
[2018-11-04] MEDS: NORVASC PO SCH (10:13)
--- NOTE | 2018-11-08 00:28 | Treadmill Report ---
PHARMACOLOGICAL NUCLEAR MYOCARDIAL PERFUSION IMAGING REPORT IV Lexiscan pharmacological stress testing using technetium pyrophosphate, Tetrofosmin was performed for evaluation of chest pain. The patient had resting images with technetium pyrophosphate, Tetrofosmin 10 mcg followed by post-vasodilation perfusion scan along with gated study post-vasodilation. Following findings were noted. Myocardial perfusion was found to be normal post-vasodilation and also at rest. No perfusion defects were noted. Transient ischemic dilation ratio was found to be 1.22. Gated studies showed normal sized left ventricle with normal contractility and calculated ejection fraction. Gated post-stress images showed normal sized left ventricle with normal wall thickening and normal wall motion. Left ventricular ejection fraction was calculated to be 52%. FINAL IMPRESSION: 1. Normal myocardial perfusion scan at rest and with post-stress. 2. Normal left ventricular systolic size and function with calculated EF of 52%. 3. This study was felt to be low risk for future cardiac events. JOB# [id number] KEN/YOSEF
== END 2018-11-04 11:02 | disposition home or self-care (01) | DRG 305 ==
LOC: ED 23:21 → 4A 11-03 04:40
PROVIDERS: ADMIT Family Medicine; ATTEND Family Medicine
DX: I16.1 Hypertensive emergency (principal); I20.0 Unstable angina; I10 Essential (primary) hypertension; H40.9 Unspecified glaucoma
CPT/HCPCS: 36415; 70450; 71046; 78452; 80048; 80061; 82962; 84443; 84484; 84703; 85025; 85610; 85670; 85730; 93005; 93010; 93017; 96372; 99291; G0378; A9502; J1650; J2785

== ENCOUNTER 2019-01-24 14:07 | Emergency (ER) | payer MEDICAID ==
--- NOTE | 2019-01-24 14:51 | Event Note ---
ED Screening Note Date of service: 01/24/19 Time: 14:49 ED Screening Note: 43 y/o female comes in for chest pain, FIELDS and elevated blood pressure. Was recently discharge from hospital 11/04/18. Taking all medication as prescribed. This initial assessment/diagnostic orders/clinical plan/treatment(s) is/are subject to change based on patients health status, clinical progression and re- assessment by fellow clinical providers in the ED. Further treatment and workup at subsequent clinical providers discretion. Patient/guardian urged not to elope from the ED as their condition may be serious if not clinically assessed and managed. Initial orders include:
[2019-01-24 16:01] LABS: Basophils # (Auto) 0.1 K/mm3 (0.0-0.1); Basophils % (Auto) 1.1 % (0.0-1.8); Eosinophils # (Auto) 0.1 K/mm3 (0.0-0.4); Eosinophils % (Auto) 1.1 % (0.0-4.3); Hematocrit 41.8 % (30.3-42.9); Hemoglobin 14.2 gm/dl (10.1-14.3); Lymphocytes # (Auto) 2.3 K/mm3 (1.2-5.4); Mean Corpuscular HGB Conc 34 % (30-34); Mean Corpuscular Volume 85 fl (79-97); Monocytes # (Auto) 0.6 K/mm3 (0.0-0.8); Monocytes % (Auto) 7.5 % (0.0-7.3); Platelet Count 310 K/mm3 (140-440); Red Blood Count 4.92 M/mm3 (3.65-5.03); Red Cell Distribution Width 14.9 % (13.2-15.2)
--- NOTE | 2019-01-24 16:23 | XRay Report ---
PROCEDURE: XR CHEST ROUTINE 2V TECHNIQUE: PA and lateral chest radiographs were obtained. HISTORY: chest pain COMPARISONS: None. FINDINGS: Heart: Normal. Mediastinum/Vessels: Normal. Lungs/Pleural space: Normal. Bony thorax: No acute osseous abnormality. IMPRESSION: Normal examination. This document is electronically signed by Last Dias MD., January 24 2019 04:21:34 PM ET
[2019-01-24 16:24] LABS: Alanine Aminotransferase 17 units/L (7-56); Albumin 4.5 g/dL (3.9-5); BUN/Creatinine Ratio 14; Blood Urea Nitrogen 14 mg/dL (7-17); Calcium 9.1 mg/dL (8.4-10.2); Hemolysis Index 28
--- NOTE | 2019-01-24 17:17 | Emergency Department Report ---
ED General Adult HPI - General Chief complaint: High BP Stated complaint: BLOOD PRESSURE HIGH Time Seen by Provider: 01/24/19 16:10 Source: patient Mode of arrival: Ambulatory Limitations: No Limitations - History of Present Illness Initial comments: Mrs. ding is a very pleasant 43-year-old female with history of hypertension and diabetes mellitus who presents with elevated blood pressure. She states that her blood pressure Has been high. BP has never been controlled. She's had some salty foods recently. She has not missed any of her doses of medications. She currently takes amlodipine 10 mg tablets. She also takes Cozaar 100 mg. She states that she was only prescribed 50 mg tablets. She requires 2 tablets. She is concerned she may run out of this medication. She is also highly stressed. She recently was told that her HIV test was equivocal. She has a confirmatory test scheduled on Saturday. She wants to live for her 4 year old daughter. She currently denies chest pain and headache. She has had chest pain and headache intermittently over the past several weeks. She is so stressed that she was unable to sleep last night. In October stress test was normal. Her PCP Dr. Ohara -: Gradual, days(s) (several) Location: head, chest Severity scale (0 -10): 7 Quality: aching Consistency: intermittent, now resolved Improves with: rest Associated Symptoms: denies other symptoms, chest pain, headaches - Related Data Previous Rx's Medication Instructions Recorded Last Taken Type Losartan [Cozaar] 100 mg PO DAILY #30 tablet 11/04/18 Unknown Rx amLODIPine [Norvasc] 10 mg PO QDAY #30 tablet 11/04/18 Unknown Rx metFORMIN [Glucophage] 500 mg PO BID #60 tablet 11/04/18 Unknown Rx Losartan [Cozaar] 100 mg PO QDAY 30 Days #30 tablet 01/24/19 Unknown Rx amLODIPine [Norvasc] 10 mg PO DAILY 30 Days #30 tab 01/24/19 Unknown Rx Allergies Allergy/AdvReac Type Severity Reaction Status Date / Time No Known Allergies Allergy Verified 01/24/19 14:13 ED Review of Systems ROS: Stated complaint: BLOOD PRESSURE HIGH Other details as noted in HPI Comment: All other systems reviewed and negative Constitutional: denies: fever, malaise Respiratory: cough. denies: shortness of breath Cardiovascular: denies: chest pain Neurological: headache ED Past Medical Hx - Past Medical History Previous Medical History?: Yes Hx Hypertension: Yes Hx Diabetes: Yes Additional medical history: glaucoma - Surgical History Past Surgical History?: Yes Additional Surgical History: csection - Family History Family history: hypertension - Social History Smoking Status: Never Smoker - Medications Home Medications: Home Medications Medication Instructions Recorded Confirmed Last Taken Type Losartan [Cozaar] 100 mg PO DAILY #30 tablet 11/04/18 Unknown Rx amLODIPine [Norvasc] 10 mg PO QDAY #30 tablet 11/04/18 Unknown Rx metFORMIN [Glucophage] 500 mg PO BID #60 tablet 11/04/18 Unknown Rx Losartan [Cozaar] 100 mg PO QDAY 30 Days #30 tablet 01/24/19 Unknown Rx amLODIPine [Norvasc] 10 mg PO DAILY 30 Days #30 tab 01/24/19 Unknown Rx ED Physical Exam - General Limitations: No Limitations General appearance: alert, in no apparent distress - Head Head exam: Present: atraumatic, normocephalic - Eye Eye exam: Present: normal appearance - ENT ENT exam: Present: mucous membranes moist - Neck Neck exam: Present: normal inspection, full ROM - Respiratory Respiratory exam: Present: normal lung sounds bilaterally. Absent: respiratory distress, wheezes, rales, rhonchi - Cardiovascular Cardiovascular Exam: Present: regular rate, normal rhythm, normal heart sounds. Absent: systolic murmur, diastolic murmur, rubs, gallop - GI/Abdominal GI/Abdominal exam: Present: soft, normal bowel sounds. Absent: distended, tenderness, guarding, rebound - Extremities Exam Extremities exam: Present: normal inspection - Back Exam Back exam: Present: normal inspection - Neurological Exam Neurological exam: Present: alert, oriented X3 - Psychiatric Psychiatric exam: Present: normal affect, normal mood - Skin Skin exam: Present: warm, dry, intact, normal color. Absent: rash ED Course Vital Signs 01/24/19 01/24/19 14:17 16:46 Temperature 99.1 F Pulse Rate 101 H 85 Respiratory 18 14 Rate Blood Pressure 212/106 Blood Pressure 199/114 [Left] O2 Sat by Pulse 98 97 Oximetry ED Medical Decision Making - Lab Data Result diagrams: 01/24/19 15:45 01/24/19 15:45 Laboratory Results - last 24 hr 01/24/19 01/24/19 15:45 15:45 WBC 7.9 RBC 4.92 Hgb 14.2 Hct 41.8 MCV 85 MCH 29 MCHC 34 RDW 14.9 Plt Count 310 Lymph % (Auto) 29.0 [place] % (Auto) 7.5 H Eos % (Auto) 1.1 Baso % (Auto) 1.1 Lymph # 2.3 [place] # 0.6 Eos # 0.1 Baso # 0.1 Seg Neutrophils % 61.3 Seg Neutrophils # 4.9 Sodium 137 Potassium 4.3 Chloride 98.2 Carbon Dioxide 26 Anion Gap 17 BUN 14 Creatinine 1.0 Estimated GFR > 60 BUN/Creatinine Ratio 14 Glucose 101 H Calcium 9.1 Total Bilirubin 0.40 AST 17 ALT 17 Alkaline Phosphatase 58 Troponin T < 0.010 Total Protein 8.7 H Albumin 4.5 Albumin/Globulin Ratio 1.1 - EKG Data 01/24/19 17:15 EKG obtained 1421 Normal sinus rhythm rate 95 beats a minute normal axis normal intervals positive LVH no significant ST elevation EKG is unchanged from October 2018, I reviewed EKG obtained 11/03/2018 - Medical Decision Making Mrs. Bautista presents with hypertensive urgency. No evidence of an organ damage. Patient has chest pain related to stress. She has noncardiac pain. I do not suspect pulmonary embolism or acute aortic dissection. Do not suspect an emergent cause of chest pain. she does have tension headache. i have prescribed amlodipine and cozaar her normal dosing. she received 1 dose labetalol in ED. I encourage her to follow-up with her pcp Dr. Ohara for blood pressure management also gave her reassurance and education regarding HIV infection. Without treatment blood pressure is currently 183/89, emergent blood pressure lowering is not indicated at this time. However she did receive by mouth medication prior to discharge. Critical care attestation.: If time is entered above; I have spent that time in minutes in the direct care of this critically ill patient, excluding procedure time. ED Disposition Clinical Impression: Hypertensive urgency Disposition: DC-01 TO HOME OR SELFCARE Is pt being admited?: No Does the pt Need Aspirin: No Condition: Stable Instructions: Hypertension (ED) Prescriptions: Losartan [Cozaar] 100 mg PO QDAY 30 Days #30 tablet amLODIPine [Norvasc] 10 mg PO DAILY 30 Days #30 tab Referrals: JOSE A OHARA MD [Staff Physician] - 3-5 Days
[2019-01-24] MEDS ORDERED: NORMODYNE PO ONE (18:00)
[2019-01-24 18:12] VITALS: BP 166/98
== END 2019-01-24 18:11 | disposition home or self-care (01) ==
LOC: ED 14:07
DX: I16.0 Hypertensive urgency (principal); E11.9 Type 2 diabetes mellitus without complications; Z86.69 Personal history of other diseases of the nervous system and sense organs
CPT/HCPCS: 36415; 71046; 80053; 84484; 85025; 93005; 93010; 99283

== ENCOUNTER 2019-06-05 13:26 | Observation (INO) | payer MEDICAID ==
[2019-06-05] MEDS ORDERED: ASPIRIN 325 MG TAB PO ONE (14:02)
--- NOTE | 2019-06-05 14:04 | Event Note ---
ED Screening Note Date of service: 06/05/19 Time: 14:01 ED Screening Note: This is a 44 y.o. F. that presents to the ER with shortness of breath and chest pain since 1100 today. PMH of DM & HTN - fever, chills, cough, sore throat, nausea, and vomiting This initial assessment/diagnostic orders/clinical plan/treatment(s) is/are subject to change based on patients health status, clinical progression and re- assessment by fellow clinical providers in the ED. Further treatment and workup at subsequent clinical providers discretion. Patient/guardian urged not to elope from the ED as their condition may be serious if not clinically assessed and managed. Initial orders include: Labs, ekg, cxr
[2019-06-05 14:38] LABS: Basophils % (Auto) 0.5 % (0.0-1.8); Eosinophils # (Auto) 0.1 K/mm3 (0.0-0.4); Eosinophils % (Auto) 0.7 % (0.0-4.3); Hematocrit 38.9 % (30.3-42.9); Hemoglobin 12.9 gm/dl (10.1-14.3); Lymphocytes # (Auto) 2.2 K/mm3 (1.2-5.4); Lymphocytes % (Auto) 29.1 % (13.4-35.0); Mean Corpuscular HGB Conc 33 % (30-34); Mean Corpuscular Volume 86 fl (79-97); Monocytes # (Auto) 0.7 K/mm3 (0.0-0.8); Monocytes % (Auto) 9.3 % (0.0-7.3); Platelet Count 205 K/mm3 (140-440); Red Blood Count 4.55 M/mm3 (3.65-5.03); Red Cell Distribution Width 15.1 % (13.2-15.2)
--- NOTE | 2019-06-05 14:46 | XRay Report ---
CHEST 1 VIEW INDICATION: Chest Pain. COMPARISON: 01/24/2019 FINDINGS: SUPPORT DEVICES: None. HEART / MEDIASTINUM: No significant abnormality. LUNGS / PLEURA: No significant pulmonary or pleural abnormality. No pneumothorax. ADDITIONAL FINDINGS: IMPRESSION: 1. No acute findings. Signer Name: Jayy Morton MD Signed: 06/05/2019 2:42 PM Workstation Name: [id number]
[2019-06-05 15:02] LABS: BUN/Creatinine Ratio 15; Blood Urea Nitrogen 18 mg/dL (7-17); Calcium 9.9 mg/dL (8.4-10.2); Hemolysis Index 8
[2019-06-05] MEDS ORDERED: hydrALAZINE 25 MG TAB PO ONE (15:18)
--- NOTE | 2019-06-05 15:36 | Emergency Department Report ---
ED Chest Pain HPI - General Chief Complaint: Chest Pain Stated Complaint: CHEST PAIN Time Seen by Provider: 06/05/19 14:01 Source: patient Mode of arrival: Ambulatory Limitations: No Limitations - History of Present Illness Initial Comments: 44-year-old -English female patient with history of hypertension, diabetes, glaucoma, [place], and CVA complains of left-sided chest pain and shortness of breath starting at 11 AM today. She arrives it as a squeezing pain area she denies any history of DVT/PE, recent long travel, or leg pain/swelling. She also denies any oral hormones. He should states shortness of breath worsens with ambulation and lying down. -: Sudden Onset: during rest Pain Location: right chest Pain Radiation: none Severity scale (0 -10): 2 Quality: squeezing Consistency: constant Worsens With: exertion, supine re: denies: nausea, vomting Other Symptoms: denies: cough, syncope, palpitations - Related Data Previous Rx's Medication Instructions Recorded Last Taken Type Losartan [Cozaar] 100 mg PO DAILY #30 tablet 11/04/18 Unknown Rx amLODIPine 10 mg PO QDAY #30 tablet 11/04/18 Unknown Rx metFORMIN [Glucophage] 500 mg PO BID #60 tablet 11/04/18 Unknown Rx Losartan [Cozaar] 100 mg PO QDAY 30 Days #30 tablet 01/24/19 Unknown Rx amLODIPine 10 mg PO DAILY 30 Days #30 tab 01/24/19 Unknown Rx Allergies Allergy/AdvReac Type Severity Reaction Status Date / Time No Known Allergies Allergy Verified 01/24/19 14:13 Heart Score - HEART Score History: Moderately suspicious EKG: Non-specific Age: 45-65 Risk factors: > 3 risk factors or hx of atherosclerotic disease Troponin: < normal limit HEART Score: 5 - Critical Actions Critical Actions: 4-6 pts:12-16.6% risk of adverse cardiac event. Should be admitted ED Review of Systems ROS: Stated complaint: CHEST PAIN Other details as noted in HPI Constitutional: denies: chills, fever Eyes: denies: vision change ENT: denies: throat pain Respiratory: no symptoms reported Cardiovascular: as per HPI. denies: syncope Gastrointestinal: denies: abdominal pain, nausea, vomiting Genitourinary: denies: frequency Musculoskeletal: denies: back pain Skin: denies: rash, lesions Neurological: denies: headache, weakness, numbness, paresthesias Psychiatric: denies: anxiety, depression ED Past Medical Hx - Past Medical History Hx Hypertension: Yes Hx Diabetes: Yes Additional medical history: glaucoma - Surgical History Additional Surgical History: csection - Social History Smoking Status: Never Smoker Substance Use Type: None - Medications Home Medications: Home Medications Medication Instructions Recorded Confirmed Last Taken Type Losartan [Cozaar] 100 mg PO DAILY #30 tablet 11/04/18 Unknown Rx amLODIPine 10 mg PO QDAY #30 tablet 11/04/18 Unknown Rx metFORMIN [Glucophage] 500 mg PO BID #60 tablet 11/04/18 Unknown Rx Losartan [Cozaar] 100 mg PO QDAY 30 Days #30 tablet 01/24/19 Unknown Rx amLODIPine 10 mg PO DAILY 30 Days #30 tab 01/24/19 Unknown Rx ED Physical Exam - General Limitations: No Limitations General appearance: alert, in no apparent distress - Head Head exam: Present: atraumatic, normocephalic - Eye Eye exam: Present: normal appearance. Absent: scleral icterus - Respiratory Respiratory exam: Present: normal lung sounds bilaterally. Absent: respiratory distress, wheezes, rales, rhonchi, chest wall tenderness, accessory muscle use - Cardiovascular Cardiovascular Exam: Present: normal rhythm, tachycardia (mild). Absent: rubs, gallop - GI/Abdominal GI/Abdominal exam: Present: soft. Absent: distended, tenderness - Extremities Exam Extremities exam: Absent: pedal edema, joint swelling, calf tenderness - Neurological Exam Neurological exam: Present: alert, oriented X3 - Psychiatric Psychiatric exam: Present: normal affect, normal mood - Skin Skin exam: Present: warm, dry, intact, normal color. Absent: rash ED Course Vital Signs 06/05/19 06/05/19 06/05/19 14:01 15:38 15:46 Temperature 98.1 F Pulse Rate 88 901 H Respiratory 12 Rate Blood Pressure 171/95 152/104 Blood Pressure 171/95 [Right] O2 Sat by Pulse 100 99 Oximetry 06/05/19 06/05/19 06/05/19 16:15 16:30 17:00 Temperature Pulse Rate 82 82 82 Respiratory 22 22 20 Rate Blood Pressure 167/92 155/90 157/89 Blood Pressure [Right] O2 Sat by Pulse 97 97 97 Oximetry 11/08/19 11/08/19 17:15 17:30 Temperature Pulse Rate 81 79 Respiratory 23 20 Rate Blood Pressure 158/92 159/91 Blood Pressure [Right] O2 Sat by Pulse [address] score - Ct Score Age > 65: (0) No Aspirin use within the Past 7 Days: (0) No 3 or more CAD Risk Factors: (1) Yes 2 or more Angina events in past 24 hrs: (1) Yes Known CAD with more than 50% Stenosis: (0) No Elevated Cardiac Markers: (0) No ST Deviation Greater than 0.5mm: (0) No CT Score: 2 ED Medical Decision Making - Lab Data Result diagrams: 06/05/19 14:21 06/05/19 14:21 Lab Results 06/05/19 06/05/19 06/05/19 Range/Units 14:21 14:21 14:21 WBC 7.7 (4.5-11.0) K/mm3 RBC 4.55 (3.65-5.03) M/mm3 Hgb 12.9 (10.1-14.3) gm/dl Hct 38.9 (30.3-42.9) % MCV 86 (79-97) fl MCH 28 (28-32) pg MCHC 33 (30-34) % RDW 15.1 (13.2-15.2) % Plt Count 205 (140-440) K/mm3 Lymph % (Auto) 29.1 (13.4-35.0) % [place] % (Auto) 9.3 H (0.0-7.3) % Eos % (Auto) 0.7 (0.0-4.3) % Baso % (Auto) 0.5 (0.0-1.8) % Lymph # 2.2 (1.2-5.4) K/mm3 [place] # 0.7 (0.0-0.8) K/mm3 Eos # 0.1 (0.0-0.4) K/mm3 Baso # 0.0 (0.0-0.1) K/mm3 Seg Neutrophils % 60.4 (40.0-70.0) % Seg Neutrophils # 4.6 (1.8-7.7) K/mm3 D-Dimer (0-234) ng/mlDDU Sodium 140 (137-145) mmol/L Potassium 4.1 (3.6-5.0) mmol/L Chloride 100.7 (98-107) mmol/L Carbon Dioxide 23 (22-30) mmol/L Anion Gap 20 mmol/L BUN 18 H (7-17) mg/dL Creatinine 1.2 (0.7-1.2) mg/dL Estimated GFR 59 ml/min BUN/Creatinine Ratio 15 % Glucose 92 (65-100) mg/dL Calcium 9.9 (8.4-10.2) mg/dL Troponin T < 0.010 (0.00-0.029) ng/mL HCG, Qual Negative (Negative) 06/05/19 06/05/19 Range/Units 15:49 15:49 WBC (4.5-11.0) K/mm3 RBC (3.65-5.03) M/mm3 Hgb (10.1-14.3) gm/dl Hct (30.3-42.9) % MCV (79-97) fl MCH (28-32) pg MCHC (30-34) % RDW (13.2-15.2) % Plt Count (140-440) K/mm3 Lymph % (Auto) (13.4-35.0) % [place] % (Auto) (0.0-7.3) % Eos % (Auto) (0.0-4.3) % Baso % (Auto) (0.0-1.8) % Lymph # (1.2-5.4) K/mm3 [place] # (0.0-0.8) K/mm3 Eos # (0.0-0.4) K/mm3 Baso # (0.0-0.1) K/mm3 Seg Neutrophils % (40.0-70.0) % Seg Neutrophils # (1.8-7.7) K/mm3 D-Dimer 152.50 (0-234) ng/mlDDU Sodium (137-145) mmol/L Potassium (3.6-5.0) mmol/L Chloride (98-107) mmol/L Carbon Dioxide (22-30) mmol/L Anion Gap mmol/L BUN (7-17) mg/dL Creatinine (0.7-1.2) mg/dL Estimated GFR ml/min BUN/Creatinine Ratio % Glucose (65-100) mg/dL Calcium (8.4-10.2) mg/dL Troponin T < 0.010 (0.00-0.029) ng/mL HCG, Qual (Negative) - Radiology Data Radiology results: report reviewed CHEST 1 VIEW INDICATION: Chest Pain. COMPARISON: 01/24/2019 FINDINGS: SUPPORT DEVICES: None. HEART / MEDIASTINUM: No significant abnormality. LUNGS / PLEURA: No significant pulmonary or pleural abnormality. No p neumothorax. ADDITIONAL FINDINGS: IMPRESSION: 1. No acute findings. - Medical Decision Making 44-year-old -English female patient here today with sudden onset of shortness of breath and chest pain starting around 11 AM today. Patient has history of FL and CVA, hypertension, and diabetes. Initial and repeat troponin are normal. EKGs showed nonspecific changes. Heart score is a 5. Discussed patient with Dr. Anthony-patient to be admitted for further cardiac evaluation. Critical care attestation.: If time is entered above; I have spent that time in minutes in the direct care of this critically ill patient, excluding procedure time. ED Disposition Clinical Impression: Shortness of breath Chest pain Qualifiers: Chest pain type: other chest pain Qualified Code(s): R07.89 - Other chest pain Disposition: OP ADMIT IP TO THIS HOSP Is pt being admited?: Yes Condition: Stable Instructions: Chest Pain (ED)
[2019-06-05] MEDS ORDERED: ONDANSETRON 4 MG ODT TAB PO ONE (18:17)
[2019-06-05] MEDS ORDERED: MORPHINE 4 MG/1 ML INJ IV ONE (18:17)
[2019-06-05] MEDS ORDERED: HYDROmorphone 1 MG/1 ML INJ IV PRN (19:56)
[2019-06-05] MEDS ORDERED: ACETAMINOPHEN 325 MG TAB PO PRN (19:56)
[2019-06-05] MEDS ORDERED: ONDANSETRON 4 MG/2 ML INJ IV PRN (19:56)
[2019-06-05] MEDS ORDERED: NON-FORMULARY EACH (Losartan [Cozaar] 100 MG) PO SCH (20:00)
--- NOTE | 2019-06-05 20:39 | History and Physical Report ---
History of Present Illness Date of examination: 06/05/19 Date of admission: 06/05/19 Chief complaint: chest pain History of present illness: Patient is a 44-year-old female. Presents to the ED complaining of chest pain and shortness of breath since 11 AM this morning. Describes pain as squeezing sensation in her left chest. Rates 9 out of 10 with no radiation. Denies palpitations, N\V\D, or dizziness. Patient has a history of hypertension, diabetes, neuropathy, and back pain. Reports periodic angina at rest and with activity lasting several minutes. Also reports some dyspnea at rest and with activity as well as lower extremity edema. Past History Past Medical History: diabetes, hypertension, other (neuropathy, back pain ) Social history: no significant social history Medications and Allergies Allergies Allergy/AdvReac Type Severity Reaction Status Date / Time No Known Allergies Allergy Verified 01/24/19 14:13 Home Medications Medication Instructions Recorded Confirmed Last Taken Type metFORMIN [Glucophage] 500 mg PO BID #60 tablet 11/04/18 06/05/19 Unknown Rx Losartan [Cozaar] 100 mg PO QDAY 30 Days #30 tablet 01/24/19 06/05/19 Unknown Rx amLODIPine 10 mg PO DAILY 30 Days #30 tab 01/24/19 06/05/19 Unknown Rx Active Meds: Active Medications Acetaminophen (Tylenol) 650 mg PO Q4H PRN PRN Reason: Pain MILD(1-3)/Fever >100.5/FIELDS Amlodipine Besylate (Amlodipine) 10 mg PO DAILY YANIRA Hydromorphone HCl (Dilaudid) 0.5 mg IV Q3H PRN PRN Reason: Pain , Severe (7-10) Insulin Human Lispro (Humalog) 0 unit SUB-Q ACHS YANIRA; Protocol Losartan Potassium (Cozaar) 100 mg PO QDAY YANIRA Metformin HCl (Glucophage) 500 mg PO BID YANIRA Ondansetron HCl (Zofran) 4 mg IV Q8H PRN PRN Reason: Nausea And Vomiting Oxycodone/Acetaminophen (Percocet 5/325) 1 tab PO Q6H PRN PRN Reason: Pain, Moderate (4-6) Sodium Chloride (Sodium Chloride Flush Syringe 10 Ml) 10 ml IV BID YANIRA Sodium Chloride (Sodium Chloride Flush Syringe 10 Ml) 10 ml IV PRN PRN PRN Reason: LINE FLUSH Review of Systems Constitutional: no fever, no chills, no weakness Cardiovascular: chest pain, high blood pressure, leg edema, no palpitations Respiratory: shortness of breath, dyspnea on exertion Musculoskeletal: no shooting arm pain, no arm numbness/tingling Exam - Constitutional Vitals: Temp Pulse Resp BP Pulse Ox 98.1 F 79 20 159/91 97 06/05/19 14:01 06/05/19 17:30 06/05/19 19:01 06/05/19 17:30 06/05/19 17:30 General appearance: Present: no acute distress - Respiratory Respiratory effort: normal Respiratory: bilateral: CTA - Cardiovascular Rhythm: regular Heart Sounds: Present: S1 & S2 - Extremities Extremities: pulses intact Extremity abnormal: edema (+1 BLE edema ) Peripheral Pulses: within normal limits - Abdominal General gastrointestinal: Present: soft, non-tender - Integumentary Integumentary: Present: warm, dry - Psychiatric Psychiatric: appropriate mood/affect Results - Labs CBC & Chem 7: 06/05/19 14:21 06/05/19 14:21 Labs: Laboratory Last Values WBC 7.7 K/mm3 (4.5-11.0) 06/05/19 14:21 RBC 4.55 M/mm3 (3.65-5.03) 06/05/19 14:21 Hgb 12.9 gm/dl (10.1-14.3) 06/05/19 14:21 Hct 38.9 % (30.3-42.9) 06/05/19 14:21 MCV 86 fl (79-97) 06/05/19 14:21 MCH 28 pg (28-32) 06/05/19 14:21 MCHC 33 % (30-34) 06/05/19 14:21 RDW 15.1 % (13.2-15.2) 06/05/19 14:21 Plt Count 205 K/mm3 (140-440) 06/05/19 14:21 Lymph % (Auto) 29.1 % (13.4-35.0) 06/05/19 14:21 [place] % (Auto) 9.3 % (0.0-7.3) H 06/05/19 14:21 Eos % (Auto) 0.7 % (0.0-4.3) 06/05/19 14:21 Baso % (Auto) 0.5 % (0.0-1.8) 06/05/19 14:21 Lymph # 2.2 K/mm3 (1.2-5.4) 06/05/19 14:21 [place] # 0.7 K/mm3 (0.0-0.8) 06/05/19 14:21 Eos # 0.1 K/mm3 (0.0-0.4) 06/05/19 14:21 Baso # 0.0 K/mm3 (0.0-0.1) 06/05/19 14:21 Seg Neutrophils % 60.4 % (40.0-70.0) 06/05/19 14:21 Seg Neutrophils # 4.6 K/mm3 (1.8-7.7) 06/05/19 14:21 D-Dimer 152.50 ng/mlDDU (0-234) 06/05/19 15:49 Sodium 140 mmol/L (137-145) 06/05/19 14:21 Potassium 4.1 mmol/L (3.6-5.0) 06/05/19 14:21 Chloride 100.7 mmol/L (98-107) 06/05/19 14:21 Carbon Dioxide 23 mmol/L (22-30) 06/05/19 14:21 Anion Gap 20 mmol/L 06/05/19 14:21 BUN 18 mg/dL (7-17) H 06/05/19 14:21 Creatinine 1.2 mg/dL (0.7-1.2) 06/05/19 14:21 Estimated GFR 59 ml/min 06/05/19 14:21 BUN/Creatinine Ratio 15 % 06/05/19 14:21 Glucose 92 mg/dL (65-100) 06/05/19 14:21 Hemoglobin A1c 5.8 % (4-6) 06/05/19 14:21 Calcium 9.9 mg/dL (8.4-10.2) 06/05/19 14:21 Troponin T < 0.010 ng/mL (0.00-0.029) 06/05/19 19:52 HCG, Qual Negative (Negative) 06/05/19 14:21 Assessment and Plan Assessment and plan: Chest Pain -cardiology consulted -first troponin negative, ordered repeat x2 -last admitted in october for chest pain. Stress test done showed EF 52%, no abnormal findings -EKG shows normal sinus rhythm, no evidence of STEMI Hypertension -restarted home meds -on 100 mg losartan, 10 mg amlodipine -will continue to monitor BP, will add PRN if necessary Diabetes -restart 500 mg metformin BID -ACHS accuchecks -sliding scale insulin Neuropathy -300 mg gabapentin QD Back pain -PRN percocet ordered DVT prophylaxis -40 mg lovenox daily
[2019-06-05] MEDS ORDERED: amLODIPine 10 MG TAB ONE (21:07)
[2019-06-05] MEDS ORDERED: LOSARTAN 50 MG TAB ONE (21:08)
[2019-06-05] MEDS: amLODIPine 10 MG TAB PO SCH (21:14)
[2019-06-05] MEDS: LOSARTAN 50 MG TAB PO SCH (21:15)
[2019-06-05] MEDS ORDERED: ENOXAPARIN 40 MG/0.4 ML INJ SUB-Q ONE (21:45)
[2019-06-05] MEDS: ENOXAPARIN 40 MG/0.4 ML INJ SUB-Q SCH (22:38)
[2019-06-05] MEDS: oxyCODONE /ACETAMINOPHEN 5-325MG TAB PO PRN (22:38)
[2019-06-05] MEDS: metFORMIN 500 MG TAB PO SCH (22:38)
[2019-06-05] MEDS: INSULIN LISPRO 100 UNIT/ML SUB-Q SCH (22:52)
[2019-06-06 04:38] LABS: Basophils % (Auto) 0.5 % (0.0-1.8); Eosinophils # (Auto) 0.2 K/mm3 (0.0-0.4); Eosinophils % (Auto) 2.7 % (0.0-4.3); Hematocrit 36.5 % (30.3-42.9); Lymphocytes # (Auto) 2.8 K/mm3 (1.2-5.4); Mean Corpuscular HGB Conc 33 % (30-34); Mean Corpuscular Volume 85 fl (79-97); Monocytes # (Auto) 0.7 K/mm3 (0.0-0.8); Monocytes % (Auto) 10.9 % (0.0-7.3); Platelet Count 210 K/mm3 (140-440); Red Blood Count 4.28 M/mm3 (3.65-5.03); Red Cell Distribution Width 15.4 % (13.2-15.2)
[2019-06-06 05:01] LABS: Alanine Aminotransferase 18 units/L (7-56); Albumin 4.1 g/dL (3.9-5); BUN/Creatinine Ratio 17; Blood Urea Nitrogen 19 mg/dL (7-17); Calcium 9.1 mg/dL (8.4-10.2); Hemolysis Index 4
[2019-06-06] MEDS: INSULIN LISPRO 100 UNIT/ML SUB-Q SCH ×4 (07:30→21:32)
[2019-06-06] MEDS: LOSARTAN 50 MG TAB PO SCH ×2 (10:09→10:35)
[2019-06-06] MEDS: GABAPENTIN 300 MG CAP PO SCH ×2 (10:09→10:31)
[2019-06-06] MEDS: amLODIPine 10 MG TAB PO SCH ×2 (10:09→10:31)
[2019-06-06] MEDS: metFORMIN 500 MG TAB PO SCH ×3 (10:10→21:31)
[2019-06-06] MEDS ORDERED: POTASSIUM CHLORIDE ER 20 MEQ TAB PO NR (11:00)
--- NOTE | 2019-06-06 12:05 | Consultation ---
History of Present Illness Consult date: 06/06/19 Requesting physician: PAULIE HEDRICK Consult reason: chest pain History of present illness: Ms. Rubin is a 44 y/o female who presented to [facility] with left- sided chest pain that began around 11 am yesterday. She describes the pain as intermittent, tight and sharp; it was also accompanied by SOB and nausea. She is previously unknown to our practice and has a medical history significant for hypertension, diabetes, neuropathy and back pain. EKG was negative for acute findings, but showed some LVH and T-wave abnormalities suggestive of ischemia. Troponins were negative x3. A stress test was initially ordered, but was cancelled by the hospitalist SUPERVIS[employer] - patient's prior stress test in October was negative. A d-dimer ordered after admission was also negative. Past History Past Medical History: diabetes, hypertension, other (neuropathy, back pain ) Social history: no significant social history Medications and Allergies Allergies Allergy/AdvReac Type Severity Reaction Status Date / Time No Known Allergies Allergy Verified 01/24/19 14:13 Home Medications Medication Instructions Recorded Confirmed Last Taken Type metFORMIN [Glucophage] 500 mg PO BID #60 tablet 11/04/18 06/05/19 Unknown Rx Losartan [Cozaar] 100 mg PO QDAY 30 Days #30 tablet 01/24/19 06/05/19 Unknown Rx amLODIPine 10 mg PO DAILY 30 Days #30 tab 01/24/19 06/05/19 Unknown Rx Active Meds: Active Medications Acetaminophen (Tylenol) 650 mg PO Q4H PRN PRN Reason: Pain MILD(1-3)/Fever >100.5/FIELDS Amlodipine Besylate (Amlodipine) 10 mg PO DAILY [facility] Last Admin: 06/06/19 10:31 Dose: 10 mg Documented by: Enoxaparin Sodium (Enoxaparin) 40 mg SUB-Q QDAY@2200 [facility] Last Admin: 06/05/19 22:38 Dose: 40 mg Documented by: Gabapentin (Gabapentin) 300 mg PO DAILY [facility] Last Admin: 06/06/19 10:31 Dose: 300 mg Documented by: Hydromorphone HCl (Dilaudid) 0.5 mg IV Q3H PRN PRN Reason: Pain , Severe (7-10) Insulin Human Lispro (Humalog) 0 unit SUB-Q [facility]; Protocol Last Admin: 06/06/19 07:30 Dose: Not Given Documented by: Losartan Potassium (Cozaar) 100 mg PO QDAY [facility] Last Admin: 06/06/19 10:35 Dose: 100 mg Documented by: Metformin HCl (Glucophage) 500 mg PO BID [facility] Last Admin: 06/06/19 10:31 Dose: 500 mg Documented by: Ondansetron HCl (Zofran) 4 mg IV Q8H PRN PRN Reason: Nausea And Vomiting Oxycodone/Acetaminophen (Percocet 5/325) 1 tab PO Q6H PRN PRN Reason: Pain, Moderate (4-6) Last Admin: 06/05/19 22:38 Dose: 1 tab Documented by: Potassium Chloride (K-Dur) 40 meq PO ONCE NR Stop: 06/06/19 16:00 Last Admin: 06/06/19 11:31 Dose: 40 meq Documented by: Sodium Chloride (Sodium Chloride Flush Syringe 10 Ml) 10 ml IV BID [facility] Last Admin: 06/06/19 10:36 Dose: 10 ml Documented by: Sodium Chloride (Sodium Chloride Flush Syringe 10 Ml) 10 ml IV PRN PRN PRN Reason: LINE FLUSH Review of Systems All systems: negative Cardiovascular: chest pain Physical Examination Last Vital Signs Temp 98.2 F 06/06/19 07:52 Pulse 78 06/06/19 10:35 Resp 18 06/06/19 07:52 BP 145/88 06/06/19 10:35 Pulse Ox 95 06/06/19 07:52 General appearance: no acute distress HEENT: Positive: PERRL Neck: Positive: neck supple Cardiac: Positive: Reg Rate and Rhythm Lungs: Positive: Normal Exam Neuro: Positive: Grossly Intact Abdomen: Positive: Unremarkable Female genitourinary: deferred Skin: Positive: Clear Musculoskeletal: Normal Range of Motion Extremities: Present: normal Results 06/06/19 03:44 06/06/19 03:44 Cardiac Enzymes 06/06/19 Range/Units 03:44 AST 27 (5-40) units/L CBC 06/05/19 06/06/19 Range/Units 14:21 03:44 WBC 7.7 6.6 (4.5-11.0) K/mm3 RBC 4.55 4.28 (3.65-5.03) M/mm3 Hgb 12.9 12.0 (10.1-14.3) gm/dl Hct 38.9 36.5 (30.3-42.9) % Plt Count 205 210 (140-440) K/mm3 Lymph # 2.2 2.8 (1.2-5.4) K/mm3 [place] # 0.7 0.7 (0.0-0.8) K/mm3 Eos # 0.1 0.2 (0.0-0.4) K/mm3 Baso # 0.0 0.0 (0.0-0.1) K/mm3 Comprehensive Metabolic Panel 06/05/19 06/06/19 Range/Units 14:21 03:44 Sodium 140 138 (137-145) mmol/L Potassium 4.1 3.5 L (3.6-5.0) mmol/L Chloride 100.7 99.1 (98-107) mmol/L Carbon Dioxide 23 26 (22-30) mmol/L BUN 18 H 19 H (7-17) mg/dL Creatinine 1.2 1.1 (0.7-1.2) mg/dL Glucose 92 101 H (65-100) mg/dL Calcium 9.9 9.1 (8.4-10.2) mg/dL AST 27 (5-40) units/L ALT 18 (7-56) units/L Alkaline Phosphatase 49 (35-129) units/L Total Protein 7.5 (6.3-8.2) g/dL Albumin 4.1 (3.9-5) g/dL - EKG Interpretation EKG: sinus rhythm EKG interpretations - Telemetry EKG Rhythm: Sinus Rhythm Repolarization changes or abnormalities: early repolarization due to LVH, ST or T wave suggestive of ischemia Assessment and Plan Ms. Rubin is a 44 y/o female admitted with chest pain. Her workup is thus far unremarkable, so we suspect the etiology of her pain is non-cardiac. Will consider echocardiogram as outpatient. She may be discharged home from our perspective on her current cardiac regimen. Follow up with Dr. Hebert in our office in 7-10 days ([phone]). The patient has been seen in conjunction with Dr. Hebert, who agrees with the assessment and plan. - Patient Problems (1) Atypical chest pain Current Visit: Yes Status: Acute (2) Hypertension Current Visit: Yes Status: Chronic (3) Type 2 diabetes mellitus Current Visit: Yes Status: Chronic (4) Neuropathy Current Visit: Yes Status: Chronic (5) Shortness of breath Current Visit: Yes Status: Acute
--- NOTE | 2019-06-06 12:44 | Progress Note ---
Assessment and Plan Chest Pain, likely from GERD -cardiology consulted -Troponin levels 3 normal -last admitted in october for chest pain. Stress test done showed EF 52%, no abnormal findings -EKG shows normal sinus rhythm, no evidence of STEMI Hypokalemia Supplement and recheck Hypertension -restarted home meds -on 100 mg losartan, 10 mg amlodipine -will continue to monitor BP, will add PRN if necessary Diabetes -restart 500 mg metformin BID -ACHS accuchecks -sliding scale insulin Neuropathy -300 mg gabapentin QD Back pain -PRN percocet ordered DVT prophylaxis -40 mg lovenox daily Discharge planning a.m. after normalization of potassium level Subjective Date of service: 06/06/19 Principal diagnosis: chest pain, T2 DM, HTN. Interval history: Seen and examined. Still having some chest pain. No nausea no vomiting, no shortness of breath or diaphoresis. Objective - Exam Narrative Exam: Constitutional: Well-nourished well-developed. Obese In no distress Head: Normocephalic atraumatic Eyes: Pupils are equal round and reactive to light Nose: No enlarged turbinates, no septal deviation. Mouth: Moist mucous membranes. Neck: Supple no thyromegaly. No bruit. No JVD Heart: Regular rate and rhythm, S1-S2 normal. No rubs murmurs or gallop Lungs: Clear to auscultation bilaterally. no rales or rhonchi Abdomen: Soft, nontender. Bowel sound are present. Extremities: No edema, no cyanosis, no clubbing. Neuro: Alert oriented Oriented x3. No focal sensory or motor deficit. Skin: No rashes or hyperpigmented spots Musculoskeletal system: No joint pain or swelling Hematological: No petechia or subcutanous hemorrhages. Immunological: No multiple septic spots on the skin Lymphatic: No generalized lymphadenopathy Psychiatry: Euthymic. Calm. - Constitutional Vitals: Vital Signs - 12hr 06/06/19 06/06/19 06/06/19 04:33 07:52 10:31 Temperature 98.4 F 98.2 F Pulse Rate 76 78 78 Respiratory 18 18 Rate Blood Pressure 130/76 145/88 145/88 O2 Sat by Pulse 92 95 Oximetry 06/06/19 10:35 Temperature Pulse Rate 78 Respiratory Rate Blood Pressure 145/88 O2 Sat by Pulse Oximetry - Labs CBC & Chem 7: 06/06/19 03:44 06/06/19 03:44 Labs: Abnormal lab results 06/05/19 06/05/19 06/06/19 Range/Units 14:21 14:21 03:44 RDW 15.4 H (13.2-15.2) % Lymph % (Auto) 42.0 H (13.4-35.0) % [place] % (Auto) 9.3 H 10.9 H (0.0-7.3) % Potassium (3.6-5.0) mmol/L BUN 18 H (7-17) mg/dL Glucose (65-100) mg/dL POC Glucose (70-105) 06/06/19 06/06/19 Range/Units 03:44 11:59 RDW (13.2-15.2) % Lymph % (Auto) (13.4-35.0) % [place] % (Auto) (0.0-7.3) % Potassium 3.5 L (3.6-5.0) mmol/L BUN 19 H (7-17) mg/dL Glucose 101 H (65-100) mg/dL POC Glucose 122 H (70-105)
[2019-06-06] MEDS: oxyCODONE /ACETAMINOPHEN 5-325MG TAB PO PRN (19:23)
[2019-06-06] MEDS: ENOXAPARIN 40 MG/0.4 ML INJ SUB-Q SCH (21:32)
[2019-06-07] MEDS: oxyCODONE /ACETAMINOPHEN 5-325MG TAB PO PRN (05:26)
[2019-06-07] MEDS: INSULIN LISPRO 100 UNIT/ML SUB-Q SCH ×3 (09:49→16:45)
[2019-06-07] MEDS: LOSARTAN 50 MG TAB PO SCH (09:50)
[2019-06-07] MEDS: metFORMIN 500 MG TAB PO SCH (09:50)
[2019-06-07] MEDS: amLODIPine 10 MG TAB PO SCH (09:50)
[2019-06-07] MEDS: GABAPENTIN 300 MG CAP PO SCH (09:50)
--- NOTE | 2019-06-07 10:29 | Discharge Summary ---
Providers - Providers Date of Admission: 06/05/19 18:21 Date of discharge: 06/07/19 Attending physician: JOSE A OHARA 06/05/19 19:56 Consult to Physician [CONS] Routine Comment: Consulting Provider: MAXIMINO VELA Physician Instructions: Reason For Exam: CP Primary care physician: [employer] Hospitalization Reason for admission: chest pain Condition: Stable Pertinent studies: Chest x-ray that was unremarkable for any acute event EKG that showed lateral ischemia Cardiac enzymes that were normal Procedures: none Hospital course: Patient is a 44-year-old female. Presents to the ED complaining of chest pain and shortness of breath since 11 AM this morning. Describes pain as squeezing sensation in her left chest. Rates 9 out of 10 with no radiation. Denies palpitations, N\V\D, or dizziness. Patient has a history of hypertension, diabetes, neuropathy, and back pain. Reports periodic angina at rest and with activity lasting several minutes. Also reports some dyspnea at rest and with activity as well as lower extremity edema. EKG findings showed some LVH and T- wave abnormalities suggestive of ischemia. Troponins were negative x3. A stress test was initially ordered, but was cancelled as patient's prior stress test in October was negative. Elevated D-dimer promted a CT chest that was neg Chest pain resolved. 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 Condition on discharge was satisfactory Disposition: DC-01 TO HOME OR SELFCARE Time spent for discharge: 35 mins - Discharge Diagnoses (1) Hypokalemia Status: Acute (2) Atypical chest pain Status: Acute (3) Shortness of breath Status: Acute (4) Hypertension Status: Chronic (5) Neuropathy Status: Chronic (6) Type 2 diabetes mellitus Status: Chronic (7) Malignant hypertensive urgency Status: Acute Core Measure Documentation - Palliative Care Palliative Care/ Comfort Measures: Not Applicable - Core Measures Any of the following diagnoses?: none Exam - Physical Exam Narrative exam: Constitutional: Well-nourished well-developed. Obese In no distress Head: Normocephalic atraumatic Eyes: Pupils are equal round and reactive to light Nose: No enlarged turbinates, no septal deviation. Mouth: Moist mucous membranes. Neck: Supple no thyromegaly. No bruit. No JVD Heart: Regular rate and rhythm, S1-S2 normal. No rubs murmurs or gallop Lungs: Clear to auscultation bilaterally. no rales or rhonchi Abdomen: Soft, nontender. Bowel sound are present. Extremities: No edema, no cyanosis, no clubbing. Neuro: Alert oriented Oriented x3. No focal sensory or motor deficit. Skin: No rashes or hyperpigmented spots Musculoskeletal system: No joint pain or swelling Hematological: No petechia or subcutanous hemorrhages. Immunological: No multiple septic spots on the skin Lymphatic: No generalized lymphadenopathy Psychiatry: Euthymic. Calm. - Constitutional Vitals: Temp Pulse Resp BP Pulse Ox 98.4 F 73 18 139/74 96 06/07/19 05:09 06/07/19 05:07 06/07/19 06:26 06/07/19 05:07 06/07/19 05:07 Plan Activity: fall precautions Weight Bearing Status: Non-Weight Bearing Diet: diabetic Follow up with: PRIMARY CARE, [Primary Care Provider] - 3-5 Days Prescriptions: amLODIPine 10 mg PO DAILY #30 tablet Losartan [Cozaar] 100 mg PO QDAY 30 Days #30 tablet Gabapentin 300 mg PO BID #60 capsule metFORMIN [Glucophage] 500 mg PO BID #60 tablet
[2019-06-07 19:41] VITALS: BP 132/70
== END 2019-06-07 19:46 | disposition home or self-care (01) ==
LOC: ED 13:26 → 4A 18:21
PROVIDERS: ADMIT Internal Medicine; ATTEND Family Medicine
DX: R07.9 Chest pain, unspecified (principal); R06.02 Shortness of breath; E11.40 Type 2 diabetes mellitus with diabetic neuropathy, unspecified; I10 Essential (primary) hypertension; I25.2 Old myocardial infarction; Z86.73 Personal history of transient ischemic attack (TIA), and cerebral infarction without residual deficits
CPT/HCPCS: 36415; 71045; 80048; 80053; 82962; 83036; 84484; 84703; 85025; 85379; 93005; 93010; 96372; 96374; 99284; G0378; J1650; J2270; Q0162

== ENCOUNTER 2019-06-11 09:51 | Emergency (ER) | payer MEDICAID ==
[2019-06-11] MEDS ORDERED: SODIUM CHLORIDE 0.9% 1000 ML 1,000 ML IV ONE (10:22)
[2019-06-11] MEDS ORDERED: ONDANSETRON 4 MG/2 ML INJ IV ONE (10:22)
[2019-06-11] MEDS ORDERED: LIDOCAINE VISCOUS 2% 15 ML ORAL LIQD PO ONE (10:24)
[2019-06-11] MEDS ORDERED: FAMOTIDINE 20 MG/2 ML INJ IV ONE (10:24)
[2019-06-11] MEDS ORDERED: ALUM-MAG HYDROXIDE-SIMETHICONE 200-200-20MG/5ML ORAL LIQD 30 ML PO ONE (10:24)
--- NOTE | 2019-06-11 10:25 | Emergency Department Report ---
ED General Adult HPI - General Chief complaint: Abdominal Pain Stated complaint: N/V HTN Time Seen by Provider: 06/11/19 10:22 Source: patient, EMS Mode of arrival: Stretcher Limitations: No Limitations - History of Present Illness Initial comments: 44 yo aa female comes to ER with acute onset RUQ pain last PM. She is associating it with her new alejandro rx that she started yesterday. She only took 1 dose. Pt recently dc from hosp with chest pain. She had a normal stress test in October of this year. She is newly diagnosed diabetic -6 m ago. Hx HTN- she could not take her BP meds this AM due to vomiting. Nauseated on admit. No vomiting. RUQ abd pain; pos [place]. No dysuria. No vag dc. no diarrhea. lmp 05/23 -: Sudden Location: abdomen Radiation: other (r side) Quality: aching Consistency: constant Improves with: none Worsens with: none Associated Symptoms: nausea/vomiting Treatments Prior to Arrival: none - Related Data Previous Rx's Medication Instructions Recorded Last Taken Type Gabapentin 300 mg PO BID #60 capsule 06/07/19 Unknown Rx Losartan [Cozaar] 100 mg PO QDAY tablet 06/07/19 Unknown Rx Losartan [Cozaar] 100 mg PO QDAY 30 Days #30 tablet 06/07/19 Unknown Rx amLODIPine 10 mg PO DAILY #30 tablet 06/07/19 Unknown Rx metFORMIN [Glucophage] 500 mg PO BID #60 tablet 06/07/19 Unknown Rx Famotidine [Pepcid] 20 mg PO DAILY #30 tablet 06/11/19 Unknown Rx Allergies Allergy/AdvReac Type Severity Reaction Status Date / Time No Known Allergies Allergy Verified 01/24/19 14:13 ED Review of Systems ROS: Stated complaint: N/V HTN Other details as noted in HPI Comment: All other systems reviewed and negative ED Past Medical Hx - Past Medical History Previous Medical History?: Yes Hx Hypertension: Yes Hx CVA: No Hx Heart Attack/AMI: No Hx Congestive Heart Failure: No Hx Diabetes: Yes Hx Deep Vein Thrombosis: No Hx Pulmonary Embolism: No Hx GERD: No Hx Liver Disease: No Hx Renal Disease: No Hx of Cancer: No Hx Sickle Cell Disease: No Hx Arthritis: No Hx Headaches / Migraines: No Hx Seizures: No Hx Kidney Stones: No Hx Psychiatric Treatment: No Hx Asthma: No Hx COPD: No Hx Tuberculosis: No Hx Dementia: No Hx HIV: No Additional medical history: glaucoma - Surgical History Past Surgical History?: Yes Additional Surgical History: csection - Family History Family history: no significant - Social History Smoking Status: Never Smoker Substance Use Type: None - Medications Home Medications: Home Medications Medication Instructions Recorded Confirmed Last Taken Type Gabapentin 300 mg PO BID #60 capsule 06/07/19 Unknown Rx Losartan [Cozaar] 100 mg PO QDAY tablet 06/07/19 Unknown Rx Losartan [Cozaar] 100 mg PO QDAY 30 Days #30 tablet 06/07/19 Unknown Rx amLODIPine 10 mg PO DAILY #30 tablet 06/07/19 Unknown Rx metFORMIN [Glucophage] 500 mg PO BID #60 tablet 06/07/19 Unknown Rx Famotidine [Pepcid] 20 mg PO DAILY #30 tablet 06/11/19 Unknown Rx ED Physical Exam - General Limitations: No Limitations General appearance: alert, in no apparent distress - Head Head exam: Present: atraumatic, normocephalic - Eye Eye exam: Present: normal appearance - ENT ENT exam: Present: mucous membranes moist - Neck Neck exam: Present: normal inspection - Respiratory Respiratory exam: Present: normal lung sounds bilaterally. Absent: respiratory distress - Cardiovascular Cardiovascular Exam: Present: regular rate, normal rhythm. Absent: systolic murmur, diastolic murmur, rubs, gallop - GI/Abdominal GI/Abdominal exam: Present: soft, tenderness, normal bowel sounds. Absent: distended, guarding, rebound, rigid, diminished bowel sounds, hyperactive bowel sounds, hypoactive bowel sounds, organomegaly, mass, bruit, pulsatile mass - Rectal Rectal exam: Present: deferred - Extremities Exam Extremities exam: Present: normal inspection - Back Exam Back exam: Present: normal inspection - Neurological Exam Neurological exam: Present: alert, oriented X3 - Psychiatric Psychiatric exam: Present: normal affect, normal mood - Skin Skin exam: Present: warm, dry, intact, normal color. Absent: rash ED Course Vital Signs 06/11/19 06/11/19 06/11/19 10:10 10:15 11:23 Temperature 98.6 F Pulse Rate 72 80 Respiratory 20 20 Rate Blood Pressure 211/113 Blood Pressure 194/96 [Right] O2 Sat by Pulse 100 Oximetry 06/11/19 06/11/19 12:12 13:01 Temperature Pulse Rate 86 82 Respiratory 20 17 Rate Blood Pressure Blood Pressure 182/90 178/97 [Right] O2 Sat by Pulse 99 100 Oximetry ED Medical Decision Making - Lab Data Result diagrams: 06/11/19 11:04 06/11/19 11:04 - Radiology Data Radiology results: report reviewed, image reviewed - Medical Decision Making Vital Signs 06/11/19 06/11/19 06/11/19 10:10 10:15 11:23 Temperature 98.6 F Pulse Rate 72 80 Respiratory 20 20 Rate Blood Pressure 211/113 Blood Pressure 194/96 [Right] O2 Sat by Pulse 100 Oximetry 06/11/19 06/11/19 12:12 13:01 Temperature Pulse Rate 86 82 Respiratory 20 17 Rate Blood Pressure Blood Pressure 182/90 178/97 [Right] O2 Sat by Pulse 99 100 Oximetry Lab Results 06/11/19 06/11/19 06/11/19 Range/Units 11:04 11:04 11:04 WBC 7.1 (4.5-11.0) K/mm3 RBC 4.54 (3.65-5.03) M/mm3 Hgb 12.9 (10.1-14.3) gm/dl Hct 38.7 (30.3-42.9) % MCV 85 (79-97) fl MCH 29 (28-32) pg MCHC 33 (30-34) % RDW 15.3 H (13.2-15.2) % Plt Count 230 (140-440) K/mm3 Lymph % (Auto) 25.1 (13.4-35.0) % [place] % (Auto) 6.3 (0.0-7.3) % Eos % (Auto) 1.8 (0.0-4.3) % Baso % (Auto) 1.3 (0.0-1.8) % Lymph # 1.8 (1.2-5.4) K/mm3 [place] # 0.4 (0.0-0.8) K/mm3 Eos # 0.1 (0.0-0.4) K/mm3 Baso # 0.1 (0.0-0.1) K/mm3 Seg Neutrophils % 65.5 (40.0-70.0) % Seg Neutrophils # 4.7 (1.8-7.7) K/mm3 Sodium (137-145) mmol/L Potassium (3.6-5.0) mmol/L Chloride (98-107) mmol/L Carbon Dioxide (22-30) mmol/L Anion Gap mmol/L BUN (7-17) mg/dL Creatinine (0.7-1.2) mg/dL Estimated GFR ml/min BUN/Creatinine Ratio % Glucose (65-100) mg/dL Calcium (8.4-10.2) mg/dL Total Bilirubin (0.1-1.2) mg/dL Direct Bilirubin (0-0.2) mg/dL Indirect Bilirubin mg/dL AST (5-40) units/L ALT (7-56) units/L Alkaline Phosphatase (35-129) units/L Total Protein (6.3-8.2) g/dL Albumin (3.9-5) g/dL Albumin/Globulin Ratio % Amylase 72 (27-131) units/L Lipase (13-60) units/L HCG, Qual (Negative) Urine Color Straw (Yellow) Urine Turbidity Clear (Clear) Urine pH 7.0 (5.0-7.0) Ur Specific [place] 1.014 (1.003-1.030) Urine Protein <15 mg/dl (Negative) mg/dL Urine Glucose (UA) Neg (Negative) mg/dL Urine Ketones Neg (Negative) mg/dL Urine Blood Neg (Negative) Urine Nitrite Neg (Negative) Urine Bilirubin Neg (Negative) Urine Urobilinogen < 2.0 (<2.0) mg/dL Ur Leukocyte Esterase Neg (Negative) Urine WBC (Auto) < 1.0 (0.0-6.0) /HPF Urine RBC (Auto) 1.0 (0.0-6.0) /HPF U Epithel Cells (Auto) 1.0 (0-13.0) /HPF Urine Mucus Few /HPF 06/11/19 06/11/19 Range/Units 11:04 11:04 WBC (4.5-11.0) K/mm3 RBC (3.65-5.03) M/mm3 Hgb (10.1-14.3) gm/dl Hct (30.3-42.9) % MCV (79-97) fl MCH (28-32) pg MCHC (30-34) % RDW (13.2-15.2) % Plt Count (140-440) K/mm3 Lymph % (Auto) (13.4-35.0) % [place] % (Auto) (0.0-7.3) % Eos % (Auto) (0.0-4.3) % Baso % (Auto) (0.0-1.8) % Lymph # (1.2-5.4) K/mm3 [place] # (0.0-0.8) K/mm3 Eos # (0.0-0.4) K/mm3 Baso # (0.0-0.1) K/mm3 Seg Neutrophils % (40.0-70.0) % Seg Neutrophils # (1.8-7.7) K/mm3 Sodium 137 (137-145) mmol/L Potassium 4.4 (3.6-5.0) mmol/L Chloride 97.5 L (98-107) mmol/L Carbon Dioxide 24 (22-30) mmol/L Anion Gap 20 mmol/L BUN 14 (7-17) mg/dL Creatinine 0.8 (0.7-1.2) mg/dL Estimated GFR > 60 ml/min BUN/Creatinine Ratio 18 % Glucose 116 H (65-100) mg/dL Calcium 9.7 (8.4-10.2) mg/dL Total Bilirubin 0.40 (0.1-1.2) mg/dL Direct Bilirubin < 0.2 (0-0.2) mg/dL Indirect Bilirubin 0.2 mg/dL AST 23 (5-40) units/L ALT 21 (7-56) units/L Alkaline Phosphatase 55 (35-129) units/L Total Protein 8.9 H (6.3-8.2) g/dL Albumin 4.6 (3.9-5) g/dL Albumin/Globulin Ratio 1.1 % Amylase (27-131) units/L Lipase 16 (13-60) units/L HCG, Qual Negative (Negative) Urine Color (Yellow) Urine Turbidity (Clear) Urine pH (5.0-7.0) Ur Specific [place] (1.003-1.030) Urine Protein (Negative) mg/dL Urine Glucose (UA) (Negative) mg/dL Urine Ketones (Negative) mg/dL Urine Blood (Negative) Urine Nitrite (Negative) Urine Bilirubin (Negative) Urine Urobilinogen (<2.0) mg/dL Ur Leukocyte Esterase (Negative) Urine WBC (Auto) (0.0-6.0) /HPF Urine RBC (Auto) (0.0-6.0) /HPF U Epithel Cells (Auto) (0-13.0) /HPF Urine Mucus /HPF labs noted ua noted CT noted medicated for pain with relief. No vomiting in ER today- pt monitored approx 5 hours. dc home with dc plan of care and pcp/GI follow up. Critical care attestation.: If time is entered above; I have spent that time in minutes in the direct care of this critically ill patient, excluding procedure time. ED Disposition Clinical Impression: Abdominal pain, Type 2 diabetes mellitus, Hypertension Disposition: DC-01 TO HOME OR SELFCARE Is pt being admited?: No Does the pt Need Aspirin: No Condition: Stable Instructions: Abdominal Pain (ED), Diabetes Mellitus Type 2 in Adults (ED), Hypertension (ED) Additional Instructions: bland diet all labs normal today CT normal today hydrate well with water take your meds with food monitor your blood sugars follow up with pcp and GI referrals below Prescriptions: Famotidine [Pepcid] 20 mg PO DAILY #30 tablet Referrals: ED RICO MD [Staff Physician] - 3-5 Days [facility] [Outside] - 3-5 Days Time of Disposition: 13:59
[2019-06-11] MEDS ORDERED: MORPHINE 2 MG/1 ML INJ IV ONE (10:30)
[2019-06-11] MEDS ORDERED: hydrALAZINE 20 MG/1 ML INJ IV ONE (10:30)
[2019-06-11 11:15] LABS: Basophils # (Auto) 0.1 K/mm3 (0.0-0.1); Basophils % (Auto) 1.3 % (0.0-1.8); Eosinophils # (Auto) 0.1 K/mm3 (0.0-0.4); Eosinophils % (Auto) 1.8 % (0.0-4.3); Hematocrit 38.7 % (30.3-42.9); Hemoglobin 12.9 gm/dl (10.1-14.3); Lymphocytes # (Auto) 1.8 K/mm3 (1.2-5.4); Lymphocytes % (Auto) 25.1 % (13.4-35.0); Mean Corpuscular HGB Conc 33 % (30-34); Mean Corpuscular Volume 85 fl (79-97); Monocytes # (Auto) 0.4 K/mm3 (0.0-0.8); Monocytes % (Auto) 6.3 % (0.0-7.3); Platelet Count 230 K/mm3 (140-440); Red Blood Count 4.54 M/mm3 (3.65-5.03); Red Cell Distribution Width 15.3 % (13.2-15.2)
[2019-06-11 11:33] LABS: Alanine Aminotransferase 21 units/L (7-56); Albumin 4.6 g/dL (3.9-5); BUN/Creatinine Ratio 18; Blood Urea Nitrogen 14 mg/dL (7-17); Calcium 9.7 mg/dL (8.4-10.2); Hemolysis Index 18
[2019-06-11 11:37] LABS: Bilirubin,Direct < 0.2 mg/dL (0-0.2)
[2019-06-11 12:07] LABS: Bilirubin,Urine NEG (Negative); Blood,Urine NEG (Negative); Color,Urine Straw (Yellow); Mucus,Urine FEW /HPF; Protein,Urine <15 mg/dL mg/dL (Negative); Urobilinogen,Urine < 2.0 mg/dL (<2.0); WBC,Urine < 1.0 /HPF (0.0-6.0)
[2019-06-11] MEDS ORDERED: IBUPROFEN 800 MG TAB PO ONE (12:27)
[2019-06-11 13:02] VITALS: BP 178/97
--- NOTE | 2019-06-11 13:57 | Cat Scan Report ---
CT ABDOMEN AND PELVIS WITH CONTRAST HISTORY: Right upper quadrant abdominal pain for 12 hours COMPARISON: None. TECHNIQUE: Axial CT images were obtained through the abdomen and pelvis after 100 cc of Omnipaque 300 intravenously. Sagittal and coronal reformatted images. All CT scans at this location are performed using CT dose reduction for ALARA by means of automated exposure control. FINDINGS: CT ABDOMEN: Lung Bases: Clear. Liver: No significant abnormality. Biliary: No significant abnormality. No calcified gallstones or biliary dilatation/inflammation is ap preciated. Spleen: No significant abnormality. Unenlarged. Pancreas: No significant abnormality. Adrenals: No significant abnormality. Kidneys: No significant abnormality. Lymphatics: No lymphadenopathy. Vasculature: No significant abnormality. Bowel/Peritoneum: No significant abnormality. No free air. No free fluid. Normal appendix. CT PELVIS: : No significant abnormality. Osseous Structures: Moderate to severe degenerative facet arthropathy in the lower lumbar spine. Additional Findings: None IMPRESSION: No acute inflammatory process is identified. No clear explanation for right upper quadrant pain. Cons ider further evaluation with ultrasound if needed. Signer Name: Bhezad Curry Jr, MD Signed: 06/11/2019 1:52 PM Workstation Name: [id number]
== END 2019-06-11 14:50 | disposition home or self-care (01) ==
LOC: ED 09:51
DX: I10 Essential (primary) hypertension (principal); E11.9 Type 2 diabetes mellitus without complications; R11.2 Nausea with vomiting, unspecified; Z79.84 Long term (current) use of oral hypoglycemic drugs; Z79.899 Other long term (current) drug therapy
CPT/HCPCS: 36415; 74177; 80048; 80076; 81001; 82150; 83690; 84703; 85025; 96361; 96374; 96375; 99284; J0360; J2270; J2405; J7030; Q9967

== ENCOUNTER 2020-01-06 00:15 | Emergency (ER) | payer MEDICAID ==
[2020-01-06] MEDS ORDERED: oxyCODONE /ACETAMINOPHEN 5-325MG TAB ONE (01:55)
[2020-01-06] MEDS ORDERED: ONDANSETRON 4 MG/2 ML INJ ONE (01:55)
--- NOTE | 2020-01-06 04:33 | Emergency Department Report ---
ED Headache HPI - General Chief Complaint: Headache Time Seen by Provider: 01/06/20 04:10 Source: patient Exam Limitations: no limitations - History of Present Illness Initial Comments: Mrs. Joseph is a 44-year-old female with history of hypertension, type 2 diabetes mellitus, neuropathy who presents with headache tingling in both hands. Gradual onset. Pain is right frontal dull. She denies neck pain. Denies fever. Denies vomiting. Gradual onset of symptoms. She is on 2 antihypertensive medications. Blood pressure is normally well controlled. She has been under a lot of stress since she moved from [facility] 1 year ago. She denies suicidal ideation. According to electronic medical record, I evaluated patient for hypertensive urgency tension headache December 2018 Timing/Duration: 4-6 hours Quality: moderate Head Injury Location: frontal Recent Head Trauma: occasional headaches Associated Symptoms: other (Paresthesias) Allergies/Adverse Reactions: Allergies latex Allergy (Verified 01/06/20 03:40) Rash Home Medications: Ambulatory Orders Gabapentin 300 mg PO BID #60 capsule 06/07/19 Losartan [Cozaar] 100 mg PO QDAY tablet 06/07/19 Losartan [Cozaar] 100 mg PO QDAY 30 Days #30 tablet 06/07/19 amLODIPine 10 mg PO DAILY #30 tablet 06/07/19 metFORMIN [Glucophage] 500 mg PO BID #60 tablet 06/07/19 Famotidine [Pepcid] 20 mg PO DAILY #30 tablet 06/11/19 ED Review of Systems ROS: Stated complaint: Other details as noted in HPI Comment: All other systems reviewed and negative Constitutional: denies: fever, malaise Respiratory: denies: cough Cardiovascular: denies: as per HPI ED Past Medical Hx - Past Medical History Previous Medical History?: Yes Hx Hypertension: Yes Hx CVA: No Hx Heart Attack/AMI: No Hx Congestive Heart Failure: No Hx Diabetes: Yes Hx Deep Vein Thrombosis: No Hx Pulmonary Embolism: No Hx GERD: No Hx Liver Disease: No Hx Renal Disease: No Hx Sickle Cell Disease: No Hx Arthritis: No Hx Headaches / Migraines: No Hx Seizures: No Hx Kidney Stones: No Hx Psychiatric Treatment: No Hx Asthma: No Hx COPD: No Hx Tuberculosis: No Hx Dementia: No Hx HIV: No Additional medical history: glaucoma - Surgical History Past Surgical History?: Yes Additional Surgical History: csection - Social History Smoking Status: Never Smoker - Medications Home Medications: Home Medications Medication Instructions Recorded Confirmed Last Taken Type Gabapentin 300 mg PO BID #60 capsule 06/07/19 Unknown Rx Losartan [Cozaar] 100 mg PO QDAY tablet 06/07/19 Unknown Rx Losartan [Cozaar] 100 mg PO QDAY 30 Days #30 tablet 06/07/19 Unknown Rx amLODIPine 10 mg PO DAILY #30 tablet 06/07/19 Unknown Rx metFORMIN [Glucophage] 500 mg PO BID #60 tablet 06/07/19 Unknown Rx Famotidine [Pepcid] 20 mg PO DAILY #30 tablet 06/11/19 Unknown Rx ED Physical Exam - General Limitations: No Limitations General appearance: alert, in no apparent distress - Head Head exam: Present: atraumatic, normocephalic - Eye Eye exam: Present: normal appearance - ENT ENT exam: Present: mucous membranes moist - Neck Neck exam: Present: normal inspection, full ROM - Respiratory Respiratory exam: Present: normal lung sounds bilaterally. Absent: respiratory distress, wheezes, rales, stridor - Cardiovascular Cardiovascular Exam: Present: regular rate, normal rhythm, normal heart sounds. Absent: systolic murmur, diastolic murmur, rubs, gallop - GI/Abdominal GI/Abdominal exam: Present: soft, normal bowel sounds. Absent: distended, tenderness, guarding, rebound - Extremities Exam Extremities exam: Present: normal inspection - Neurological Exam Neurological exam: Present: alert, oriented X3 - Psychiatric Psychiatric exam: Present: normal affect, normal mood - Skin Skin exam: Present: warm, dry, intact, normal color. Absent: rash ED Course Vital Signs 01/06/20 00:19 Temperature 97 F L Pulse Rate 92 H Respiratory 18 Rate Blood Pressure 228/109 O2 Sat by Pulse 97 Oximetry ED Medical Decision Making - Medical Decision Making 1. Hypertensive urgency severe blood pressure 228/109, blood pressure decreased to 149/102 without treatment. No evidence of endorgan damage. I strongly recommended follow-up with her PCP for blood pressure medicine 2. Tension headache: Pain improved with p.o. analgesia 3. Diabetes mellitus: Patient is euglycemic according to [employer] Critical care attestation.: If time is entered above; I have spent that time in minutes in the direct care of this critically ill patient, excluding procedure time. ED Disposition Clinical Impression: Hypertension, Tension headache, Type 2 diabetes mellitus Disposition: DC- TO HOME OR SELFCARE Is pt being admited?: No Does the pt Need Aspirin: No Condition: Stable Instructions: Tension Headache (ED) Referrals: JOSE A OHARA MD [Primary Care Provider] - 3-5 Days
[2020-01-06 13:45] VITALS: BP 151/87
== END 2020-01-06 05:14 | disposition home or self-care (01) ==
LOC: ED 00:15
DX: G44.209 Tension-type headache, unspecified, not intractable (principal); I10 Essential (primary) hypertension; E11.9 Type 2 diabetes mellitus without complications; Z91.040 Latex allergy status; Z79.899 Other long term (current) drug therapy
CPT/HCPCS: 99282; J2405